=== PATIENT | female | born 1965 | race Asian ===

== ENCOUNTER 2021-05-08 15:47 | Outpatient (REF) | payer OTHER, SELFPAY ==
--- NOTE | ~2021-05-08 | XR_ITS ---
EXAMINATION: XR CHEST CLINICAL INFORMATION: Cough COMPARISON: Previous chest x-ray September 2006 TECHNIQUE: 2 views of the chest were obtained. FINDINGS: The cardiac and mediastinal contours are stable. There are new increased markings and question bronchial wall thickening in the central right upper lobe. The lungs are otherwise clear. There is no pleural effusion or pneumothorax. Bony structures are unremarkable. XR/XR chest 2V IMPRESSION: New increased markings and bronchial wall thickening in the central right upper lobe compared to 2007 exam. Chest x-ray follow-up following treatment recommended.
== END 2021-05-08 15:48 | disposition home or self-care (01) ==
LOC: HO.XRAY 15:47
PROVIDERS: Visit Provider Internal Medicine
DX: U09.9 Post COVID-19 condition, unspecified (principal); R05.9 Cough, unspecified
CPT/HCPCS: 71046

== ENCOUNTER → 2021-06-01 13:49 | Outpatient (BNVA) | payer OTHER, SELFPAY | PROVIDERS: PCP Pediatrics; Visit Provider Internal Medicine ==

== ENCOUNTER 2021-07-31 11:43 | Outpatient (REF) | payer OTHER, SELFPAY ==
[2021-07-31 11:57] LABS: MANUAL DIFF FLAG NO
[2021-07-31 12:26] LABS: Basophils Percent Auto 0.4 % (0-2); Eosinophils Absolute Auto 0.2 X10*3/uL (0.0-0.4); Eosinophils Percent Auto 2.1 % (0-4); Hematocrit 41.3 % (37.0-47.0); Hemoglobin 13.3 g/dl (12.0-16.0); Imm Gran Abs Auto 0.01 X10*3/uL (0.00-0.03); Imm Gran Pct Auto 0.1 % (0.0-0.4); Lymphocytes Percent Auto 48.1 % (20-40); Mean Corpuscular HGB Conc 32.2 g/dl (31.0-35.0); Mean Corpuscular Hemoglobin 28.5 pg (27.0-33.0); Mean Corpuscular Volume 88.6 fL (80.0-98.0); Mean Platelet Volume 10.9 fL (9.4-12.3); Monocytes Absolute Auto 0.6 X10*3/uL (0.1-1.2); Monocytes Percent Auto 6.7 % (2-11); Neutrophils Absolute Auto 3.6 x10*3/uL (2.0-8.3); Neutrophils Percent Auto 42.6 % (45-73); Platelet Count 299 X10*3/uL (160-400); Red Blood Count 4.66 X10*6/uL (4.20-5.50); Red Cell Distribution Width 13.7 % (11.0-16.0); White Blood Count 8.4 X10*3/uL (4.8-10.8)
[2021-07-31 13:10] LABS: Alanine Aminotransferase 45 U/L (0-31); Albumin Level 4.4 g/dL (3.5-5.0); Alkaline Phosphatase 69 U/L (39-117); Anion Gap 13 (12-20); Aspartate Amino Transferase 29 U/L (5-31); Bilirubin Total 0.3 mg/dL (0.0-1.0); Blood Urea Nitrogen 12 mg/dL (9-16); Calcium 9.6 mg/dL (8.4-10.2); Carbon Dioxide 25 mmol/L (22-29); Chloride 105 mmol/L (96-108); Cholesterol 209 mg/dL; Estimated Glomerular Filt Rate > 60; Glucose Fasting 98 mg/dL (60-99); HDL Cholesterol 46 mg/dL; LDL Cholesterol Calculated 127 mg/dl; Potassium 4.6 mmol/L (3.3-5.1); Sodium 138 mmol/L (135-145); Total Protein 7.1 g/dL (6.5-8.0); Triglycerides 184 mg/dL
[2021-07-31 13:21] LABS: TSH reflex Free T4 2.03 uIU/mL (0.32-4.0)
== END 2021-07-31 11:44 | disposition home or self-care (01) ==
LOC: HO.LAB 11:43
PROVIDERS: PCP Nurse Practitioner Family; Visit Provider Nurse Practitioner Family
DX: I10 Essential (primary) hypertension (principal); R53.83 Other fatigue; E78.00 Pure hypercholesterolemia, unspecified; Z76.89 Persons encountering health services in other specified circumstances
CPT/HCPCS: 36415; 80053; 80061; 84443; 85025

== ENCOUNTER 2021-11-03 09:24 | Outpatient (REF) | payer OTHER, SELFPAY ==
[2021-11-03 09:46] LABS: Hematocrit 38.7 % (37.0-47.0); Hemoglobin 12.6 g/dl (12.0-16.0); Mean Corpuscular HGB Conc 32.6 g/dl (31.0-35.0); Mean Corpuscular Hemoglobin 28.7 pg (27.0-33.0); Mean Corpuscular Volume 88.2 fL (80.0-98.0); Mean Platelet Volume 10.6 fL (9.4-12.3); Platelet Count 264 X10*3/uL (160-400); Red Blood Count 4.39 X10*6/uL (4.20-5.50); Red Cell Distribution Width 13.2 % (11.0-16.0); White Blood Count 7.5 X10*3/uL (4.8-10.8)
[2021-11-03 10:11] LABS: Alanine Aminotransferase 35 U/L (0-31); Albumin Level 4.3 g/dL (3.5-5.0); Alkaline Phosphatase 65 U/L (39-117); Anion Gap 13 (12-20); Aspartate Amino Transferase 25 U/L (5-31); Bilirubin Total 0.2 mg/dL (0.0-1.0); Blood Urea Nitrogen 11 mg/dL (9-16); Calcium 8.9 mg/dL (8.4-10.2); Carbon Dioxide 25 mmol/L (22-29); Chloride 107 mmol/L (96-108); Cholesterol 246 mg/dL; Estimated Glomerular Filt Rate > 60; Glucose Fasting 98 mg/dL (60-99); HDL Cholesterol 59 mg/dL; LDL Cholesterol Calculated 154 mg/dl; Potassium 4.1 mmol/L (3.3-5.1); Sodium 141 mmol/L (135-145); Total Protein 6.9 g/dL (6.5-8.0); Triglycerides 166 mg/dL
[2021-11-03 10:36] LABS: Vitamin D 25-OH Total 29.5 ng/mL (>30)
[2021-11-03 10:48] LABS: Folate 19.4 ng/mL (> or = 4.0); Vitamin B12 439 pg/mL (200-900)
== END 2021-11-03 09:25 | disposition home or self-care (01) ==
LOC: HO.LAB 09:24
PROVIDERS: PCP Nurse Practitioner Family; Visit Provider Nurse Practitioner Family
DX: R53.83 Other fatigue (principal)
CPT/HCPCS: 36415; 80053; 80061; 82306; 82607; 82746; 85027

== ENCOUNTER 2022-02-08 10:02 | Outpatient (REF) | payer OTHER, SELFPAY ==
[2022-02-08 11:33] LABS: Alanine Aminotransferase 31 U/L (0-31); Albumin Level 4.4 g/dL (3.5-5.0); Alkaline Phosphatase 65 U/L (39-117); Anion Gap 16 (12-20); Aspartate Amino Transferase 26 U/L (5-31); Bilirubin Total 0.2 mg/dL (0.0-1.0); Blood Urea Nitrogen 10 mg/dL (9-16); Calcium 9.1 mg/dL (8.4-10.2); Carbon Dioxide 26 mmol/L (22-29); Chloride 105 mmol/L (96-108); Cholesterol 224 mg/dL; Estimated Glomerular Filt Rate > 60; Glucose Fasting 90 mg/dL (60-99); HDL Cholesterol 52 mg/dL; LDL Cholesterol Calculated 138 mg/dl; Potassium 4.6 mmol/L (3.3-5.1); Sodium 142 mmol/L (135-145); Total Protein 6.9 g/dL (6.5-8.0); Triglycerides 174 mg/dL
[2022-02-08 11:56] LABS: Vitamin D 25-OH Total 34.2 ng/mL (>30)
== END 2022-02-08 10:03 | disposition home or self-care (01) ==
LOC: HO.LAB 10:02
PROVIDERS: Visit Provider Nurse Practitioner Family
DX: R79.89 Other specified abnormal findings of blood chemistry (principal); E78.5 Hyperlipidemia, unspecified; R03.0 Elevated blood-pressure reading, without diagnosis of hypertension
CPT/HCPCS: 36415; 80053; 80061; 82306

== ENCOUNTER 2022-03-01 10:40 | Outpatient (REF) | payer OTHER, SELFPAY ==
--- NOTE | ~2022-03-01 | XR_ITS ---
EXAMINATION: XR ANKLE, RIGHT CLINICAL INFORMATION: Right ankle pain. COMPARISON: None TECHNIQUE: AP, lateral, and mortise views of the right ankle. XR/XR ankle RT 2V FINDINGS/IMPRESSION: Mild soft tissue swelling over the medial malleolus. Plantar calcaneal spur. No fracture identified. Alignment is anatomic. Tibiotalar joint appears maintained. Mild degenerative changes of the midfoot. No joint effusion.
== END 2022-03-01 10:41 | disposition home or self-care (01) ==
LOC: HO.XRAY 10:40
PROVIDERS: PCP Nurse Practitioner Family; Visit Provider Nurse Practitioner Family
DX: M25.571 Pain in right ankle and joints of right foot (principal)
CPT/HCPCS: 73600

== ENCOUNTER 2022-07-20 12:15 | Outpatient (REF) | payer OTHER, SELFPAY ==
--- NOTE | ~2022-07-20 | XR_ITS ---
EXAMINATION: XR SINUSES CLINICAL INFORMATION: Disorders of nose and nasal sinuses. COMPARISON: None available. TECHNIQUE: 3 views of the sinuses were obtained. FINDINGS: The paranasal sinuses are well-aerated and clear of air-fluid levels or mucosal thickening. No bony abnormality seen. The soft tissues are normal. XR/XR sinus <3V IMPRESSION: Unremarkable sinus examination.
[2022-07-20 14:35] LABS: Uric Acid 4.7 mg/dL (2.4-5.7)
== END 2022-07-20 12:16 | disposition home or self-care (01) ==
LOC: HO.LAB 12:15
PROVIDERS: PCP Nurse Practitioner Family; Visit Provider Nurse Practitioner Family
DX: J34.89 Other specified disorders of nose and nasal sinuses (principal); M25.571 Pain in right ankle and joints of right foot
CPT/HCPCS: 36415; 70210; 84550

== ENCOUNTER 2022-07-30 08:46 | Outpatient (REF) | payer OTHER, SELFPAY ==
--- NOTE | ~2022-07-30 | MM_ITS ---
EXAMINATION: MM SCREENING DIGITAL BREAST TOMOSYNTHESIS, BILATERAL CLINICAL INFORMATION: Screening. Asymptomatic. The lifetime risk of breast cancer based on the Tyrer-Cuzick Model is 4%. COMPARISON: Outside mammography: 04/04/2022, 10/05/2021, 04/04/2021, 03/30/2021 ([facility]); 03/15/2020 ([facility]). TECHNIQUE: Digital breast tomosynthesis is performed in both the craniocaudal and mediolateral oblique views along with computer-aided detection (CAD). Synthesized 2D images are generated from the tomosynthesis. FINDINGS: There are scattered areas of fibroglandular density (ACR BI-RADS breast composition Category b). There is fine fibronodular pattern similar to prior outside exams. There is no developing density, significant mass, or architectural abnormality. There are scattered bilateral punctate and rim calcifications again seen. The axilla and skin contours are unremarkable. No significant changes. MM/MM tomosynthesis screening BI IMPRESSION: No mammographic evidence of malignancy. ASSESSMENT: BI-RADS 2: Benign RECOMMENDATION: Routine annual mammography screening. This patient's information was entered into a reminder system with a target due date for their next mammogram.
== END 2022-07-30 08:47 | disposition home or self-care (01) ==
LOC: HO.MAMMO 08:46
PROVIDERS: PCP Nurse Practitioner Family; Visit Provider Advanced Practice Midwife
DX: Z12.31 Encounter for screening mammogram for malignant neoplasm of breast (principal)
CPT/HCPCS: 77063; 77067

== ENCOUNTER 2022-09-29 09:41 | Outpatient (REF) | payer OTHER, SELFPAY ==
--- NOTE | ~2022-09-29 | XR_ITS ---
EXAMINATION: XR LUMBOSACRAL SPINE WITH OBLIQUES CLINICAL INFORMATION: Low back pain COMPARISON: None available. TECHNIQUE: AP, both oblique, and lateral views of the lumbar spine. Lateral view of the lumbosacral junction. FINDINGS: Bone alignment is normal. No fracture or dislocation. Mild degenerative this disease at T12-L1 and L1-L2. Lower lumbar spine facet arthritis. No pars defect. XR/XR lumbar spine 4V min IMPRESSION: Mild degenerative changes.
[2022-09-29 10:35] LABS: Alanine Aminotransferase 35 U/L (0-31); Albumin Level 4.2 g/dL (3.5-5.0); Alkaline Phosphatase 64 U/L (39-117); Anion Gap 14 (12-20); Aspartate Amino Transferase 34 U/L (5-31); Bilirubin Total 0.4 mg/dL (0.0-1.0); Blood Urea Nitrogen 12 mg/dL (9-16); Calcium 9.3 mg/dL (8.4-10.2); Carbon Dioxide 25 mmol/L (22-29); Chloride 108 mmol/L (96-108); Estimated Glomerular Filt Rate > 60; Glucose Fasting 97 mg/dL (60-99); Potassium 4.9 mmol/L (3.3-5.1); Sodium 142 mmol/L (135-145)
[2022-09-29 10:53] LABS: Uric Acid 6.4 mg/dL (2.4-5.7)
[2022-09-29 11:01] LABS: Folate 18.7 ng/mL (> or = 4.0); TSH reflex Free T4 1.67 uIU/mL (0.32-4.0); Vitamin B12 449 pg/mL (200-900); Vitamin D 25-OH Total 40.3 ng/mL (>30)
== END 2022-09-29 09:42 | disposition home or self-care (01) ==
LOC: HO.XRAY 09:41
PROVIDERS: PCP Nurse Practitioner Family; Visit Provider Nurse Practitioner Family
DX: Z00.00 Encounter for general adult medical examination without abnormal findings (principal); M54.50 Low back pain, unspecified; E78.5 Hyperlipidemia, unspecified; E55.9 Vitamin D deficiency, unspecified; E66.9 Obesity, unspecified
CPT/HCPCS: 36415; 72110; 80053; 82306; 82607; 82746; 84443; 84550

== ENCOUNTER 2022-10-10 09:48 | Outpatient (REF) | payer OTHER, SELFPAY ==
[2022-10-10 11:59] LABS: Cholesterol 238 mg/dL; HDL Cholesterol 53 mg/dL; LDL Cholesterol Calculated 151 mg/dl; Triglycerides 171 mg/dL
== END 2022-10-10 09:49 | disposition home or self-care (01) ==
LOC: HO.LAB 09:48
PROVIDERS: PCP Nurse Practitioner Family; Visit Provider Nurse Practitioner Family
DX: E78.5 Hyperlipidemia, unspecified (principal)
CPT/HCPCS: 36415; 80061

== ENCOUNTER 2022-11-16 13:00 | Outpatient (RCR) | payer OTHER, SELFPAY ==
--- NOTE | 2022-10-24 15:25 | MHC.PT.EP ---
[facility] [place] Office [place] [facility] [place] Office [address] Aguilar Alanis [address] [phone] F: [phone] F: [phone] F: [phone] F: [phone] Physical Therapy Plan of Care Date of Evaluation: Date of Surgery: Diagnosis: LBP Assessment: 57 YO FEMALE REF TO PT W H/O PROGRESSIVE LEFT LBP - SHE DENIES RADIC SXS. SHE HAS LIMITED TRUNK AROM AND HIP FLEXIB CARTER, (+) SCOLIOSIS, DECR LUMBOPELVIC/ PROX LE STRENGTH, (+) TISSUE TENSION IN LEFT THORACOLUMB PS MM, AND PAIN IN LEFT L/S REGION. ON XRAY, 10/17/22, Mild degenerative disease at T12-L1 and L1-L2. Lower lumbar spine facet arthritis. No pars defect. FUNCTIONALLY, Pt HAS DECR JAK TO PROLONGED STANDING, WALKING, AND MORE PHYSICALLY CHALLENGING ADLs. Pt WOULD BENEFIT FROM PT TO ADDRESS THE ABOVE FINDINGS, DEV A HEP, AND PAIN MGMT/ SELF- SX MGMT TECHN. Frequency and Duration: The patient will be seen 2 x WK x 4 WKS Short Term Goals: *Pt INDEP SELF CORRECT POSTURE AND DEMON WFL SQUAT *INITIATE HEP TO ADDRESS HIP/ LUMBOPELVIC FLEXIBILITY *DECR LEFT LBP TO 2-3/10 Senior Care Goals: *Pt INDEP HEP AND SELF-SX MGMT TECHN *Pt INDEP W REG ADLs/ EXER ROUTINE REFLECTED WITH IMPROVED OSWESTRY SCORE (AT EVAL 50) *Pt DEMON PROPER BODY MECH W 3:3 SIMUL WORK TASKS Treatment Plan: Modalities to reduce pain, spasms and effusion. Manual therapy to restore motion and function. Therapeutic exercise to improve strength and flexibility. Neuromuscular re-education for posture and balance. Therapeutic activities to return to functional activities of daily living. Electronically signed by: NANCI LEOPT Please sign and return to therapist. Thank you for your referral.
--- NOTE | 2022-11-22 10:38 | MHC.PT.DC ---
[facility] [place] Office [place] Office [place] Office [address] Aguilar Alanis [address] [phone] F: [phone] F: [phone] F: [phone] F: [phone] Physical Therapy Discharge Report Diagnosis: LBP Date of Surgery: Date of Evaluation: 10/24/22 Date of Discharge: 11/22/22 Treatments to Date: 6 Cancellations to Date: 0 No Shows to Date: 0 Discharge Status: Achieved Goals Improved Function Independent with HEP Discharge Summary: THE Pt PROGRESSED WELL IN PT- SHE IS MOTIVATED AND DEMON MUCH IMPROVED BODY MECH AND SELF-POSTURAL CORRECTION. HER LBP HAS RESOLVED AND SHE HAS BEEN ABLE TO RESUME HER REG ADLs, WELL , INTEGRATE EXERCISE. SHE IS D/C THIS DATE WITH A PROGRESSIVE HEP. Electronically signed by: NANCI LEO,PT Please sign and return to therapist. Thank you for your referral.
== END 2022-11-22 10:38 | disposition home or self-care (01) ==
LOC: HO.PT 13:00
PROVIDERS: PCP Nurse Practitioner Family; Visit Provider Nurse Practitioner Family
DX: M54.50 Low back pain, unspecified (principal)
CPT/HCPCS: 97110; 97140; 97162; 97530

== ENCOUNTER 2022-11-30 14:29 | Outpatient (AMB) | payer OTHER, SELFPAY ==
[2022-11-30 14:35] VITALS: BP 132/70; PULSE 64; BMI 37.0
--- NOTE | 2022-11-30 14:35 | MHC.OFFVIS ---
Intake Vital Signs 11/30/22 14:35 Height 4 ft 11 in Weight 183 lb 6.793 oz BMI 37.0 BP 132/70 Blood Pressure Location Lt brachial Position Sitting Pulse 64 Intake Visit Reasons: Colonoscopy Screening Intake Note: Dian presents in office as anew.patient for a colonoscopy screening PT CC: pt reports having no concerns pt denies any other GI Issues Pbx Mechanic Required: No Accompanied by: Self / Same As Patient Allergies No Known Drug Allergies Allergy (Unknown, Verified 11/30/22 14:36) Unknown HPI Colonoscopy Screening HPI Details 57 year old? female here today for pre colonoscopy screening.? Patient was sent to us by her PCP.? This is her first colonoscopy screening.? Patient denies any gastrointestinal symptoms in the past or at present.? Denies any personal or family history of gastrointestinal disease, colon polyps, or cancer.? Denies history of difficulty with sedation or anesthesia in the past.? Negative for history of sleep apnea.? Denies any history of cardiac, renal, pulmonary, or hepatic disease.?? No history of infectious? diseases like hepatitis A, B, C, HIV or tuberculosis.? Patient is not on any anticoagulation therapy. Patient is nervous about going for colonoscopy and with like to get Cologuard testing in that. Patient is aware that if she is going to be positive the recommendation is to go ahead and do the colonoscopy. [facility] Medical History Acute right ankle pain Cluster headache Cough Encounter to establish care Migraine Post covid-19 condition, unspecified Sinus pain Umbilical hernia Surgical History H/O hernia repair Social History Household Members: Spouse and Children Housing: House Alcohol intake: never Patient Tobacco Use Status: Never used Tobacco e-Cigarette/Vaping Use: Never Used Second Hand Smoke Exposure: No service: No Current occupational status: unemployed Sexual orientation: Straight/Heterosexual Gender identity: Female Cognitive needs: No Hearing needs: Yes (?hearing loss) Vision needs: Yes (Pt wears glasses) Review of Systems Const Denies weight gain and Denies weight loss ENT Reports no additional complaints, Denies dysphagia and Denies odynophagia Card Reports no additional complaints Resp Reports no additional complaints GI Denies abdominal pain, Denies belching, Denies melena, Denies bloating, Denies change in bowel habits, Denies dysphagia, Denies excessive flatus, Denies dyspepsia, Denies heartburn, Denies diarrhea, Denies loose stools, Denies nausea, Denies odynophagia and Denies vomiting Reports no additional complaints Musc Reports no additional complaints Neuro Reports no additional complaints Psych Reports no additional complaints Endo Reports no additional complaints Physical Exam Vital Signs: Last Vital Signs Pulse 64 11/30/22 14:35 BP 132/70 11/30/22 14:35 BMI result Body Mass Index 37.0 Const General: healthy appearing, no acute distress and well developed Nutritional Appearance: obese Orientation/consciousness: patient oriented x3 HEENT Head: Yes normal to inspection, Yes normocephalic and Yes atraumatic Face and sinus: Yes normal facial exam Mouth: Normal oral and palatal mucosa present Throat: Yes posterior oropharynx normal, Yes tonsils normal and Yes uvula midline Eyes General: appearance normal, both eyes and all related structures Neck Neck: Yes normal visual inspection, Yes full ROM and Yes trachea midline Thyroid: Thyroid normal Resp Effort & Inspection: normal respiratory effort, able to speak in complete sentences, no tracheal deviation and symmetric chest movement Auscultation: clear to auscultation bilaterally Cardio Rate: regular rate Heart sounds: S1 normal heart sound present and S2 normal heart sound present GI Inspection: Yes normal to inspection, No distended and Yes obesity Palpation (GI): Soft to palpation, not firm, nontender and No hepatosplenomegaly present Auscultation: normal bowel sounds General: Yes no CVA tenderness Back/Spine/Pelvis Back: no CVA tenderness Skin General skin exam: elasticity normal, turgor normal and dry skin Neuro General: patient oriented x3 Psych Appearance: grossly normal Mental Status: mental status grossly normal Speech and movement: Normal speech and movement present Affect: normal affect Assessment & Plan Assessment & Plan (1) Screening for colon cancer: Code(s): Z12.11 - Encounter for screening for malignant neoplasm of colon Plan: Patient denies any GI, cardiac or respiratory symptoms.? Denies any issues with anesthesia in the past.? Denies any history of sleep apnea.? No history infectious diseases in the past or present.? Not on any anticoagulation therapy.? No family or personal history of colon cancer or polyps.? Patient denies melena, hematochezia, unintentional weight loss or ribbon like stools.? As mentioned above patient with like to have Cologuard testing. She is going to follow-up with our office in 6 months. Information about colonoscopy and what to expect before during and after the procedure discussed with patient regardless, just in case she will change her mind. Patient is aware that if Cologuard comes back positive she should go for colonoscopy. Patient is agreeable and verbalizes understanding. She was given the opportunity to ask questions and all questions answered. Thank you for allowing me to participate in her care Coding Level of Care Code New Pt Level 3 (45573) Diagnoses Screening for colon cancer Z12.11 Time Spent (min) 40 Comment 30 minutes spent with patient and additional 10 minutes spent reviewing her records
== END 2022-11-30 14:50 | disposition home or self-care (01) ==
PROVIDERS: PCP Nurse Practitioner Family; Visit Provider Nurse Practitioner Family
DX: Z01.818 Encounter for other preprocedural examination (principal); Z12.11 Encounter for screening for malignant neoplasm of colon
CPT/HCPCS: 99203

== ENCOUNTER → 2022-11-30 14:29 | Outpatient (BNVA) | payer OTHER, SELFPAY | PROVIDERS: PCP Nurse Practitioner Family; Visit Provider Nurse Practitioner Family ==

== ENCOUNTER 2023-01-25 10:17 | Outpatient (REF) | payer OTHER, SELFPAY ==
[2023-01-25 11:06] LABS: Hematocrit 41.4 % (37.0-47.0); Hemoglobin 12.9 g/dl (12.0-16.0); Mean Corpuscular HGB Conc 31.2 g/dl (31.0-35.0); Mean Corpuscular Hemoglobin 28.3 pg (27.0-33.0); Mean Corpuscular Volume 90.8 fL (80.0-98.0); Platelet Count 217 X10*3/uL (160-400); Red Blood Count 4.56 X10*6/uL (4.20-5.50); White Blood Count 8.1 X10*3/uL (4.8-10.8)
[2023-01-25 11:49] LABS: Cholesterol 103 mg/dL (<200); HDL Cholesterol 50 mg/dL (>40); LDL Cholesterol Calculated 31 mg/dL (<100); Triglycerides 110 mg/dL (<150)
== END 2023-01-25 10:18 | disposition home or self-care (01) ==
LOC: HO.LAB 10:17
PROVIDERS: PCP Nurse Practitioner Family; Visit Provider Nurse Practitioner Family
DX: E78.5 Hyperlipidemia, unspecified (principal)
CPT/HCPCS: 36415; 80061; 85027

== ENCOUNTER 2023-01-30 15:13 | Outpatient (AMB) | payer OTHER, SELFPAY ==
[2023-01-30 15:16] VITALS: BP 146/80; PULSE 88; O2SAT 98; BMI 36.6
--- NOTE | 2023-01-30 15:16 | MHC.PC.OV ---
Vital Signs 01/30/23 15:16 Height 4 ft 11 in Weight 181 lb BMI 36.6 BP 146/80 H Blood Pressure Location Lt brachial Position Sitting Pulse 88 Pulse Source Pulse Oximeter Temp Source Skin Pulse Oximetry (%) 98 Oxygen Delivery Method Room Air Intake Visit Reasons: 4 month f/u Vocational Adviser Required: No Allergies No Known Drug Allergies Allergy (Unknown, Verified 01/30/23 15:44) Unknown Medication List - Last Reconciled 01/30/23 by KIA Rucker cetirizine (Zyrtec) 10 mg PO DAILY PRN cholecalciferol (vitamin D3) (Vitamin D3) 25 mcg PO DAILY escitalopram oxalate 5 mg (1/2 x 10 mg) PO DAILY fluticasone propionate 50 mcg/actuation (Flonase Allergy Relief) 2 sprays intranasal DAILY ibuprofen 600 mg PO Q8H PRN rosuvastatin 20 mg PO DAILY sodium chloride 0.65% (Saline Nasal) 1 spray intranasal BID PRN tizanidine 2 mg PO Q8H PRN tretinoin 0.025% appl topical BEDTIME Tobacco use date assessed: 01/30/23 Dental Screening Dental Screen Date: 01/30/23 Did you have a dental visit in the last 12 months?: Yes Did you have a dental problem in the last 6 months where you did not have access to dental care?: No Was dental information given to patient?: Patient has dentist HPI 4 month f/u HPI Details Patient is a 57-year-old female who presents today for routine follow-up. Medical history significant for GERD, environmental and seasonal allergies, migraine with aura, hyperlipidemia, insomnia, low back pain - patient reports finishing physical therapy with no improvement in pain-she reports taking ibuprofen and muscle relaxer with very minimal improvement, hyperlipidemia, bilateral ankle pain-reports history of right ankle injection 06/2022 by Podiatry with no improvement in pain-will refer to pain management for an evaluation. In regards to depression, patient reports that she would like to go back on paroxetine instead of escitalopram-escitalopram makes her mad at times. Patient denies shortness of breath or chest pain. Recent blood work results reviewed with the patient. [facility] Medical History Sinus pain Acute right ankle pain Encounter to establish care Umbilical hernia Cluster headache Migraine Post covid-19 condition, unspecified Cough Surgical History H/O hernia repair Social History Household Members: Spouse and Children Housing: House Alcohol intake: never Patient Tobacco Use Status: Never used Tobacco e-Cigarette/Vaping Use: Never Used Second Hand Smoke Exposure: No service: No Current occupational status: unemployed Sexual orientation: Straight/Heterosexual Gender identity: Female Cognitive needs: No Hearing needs: Yes (?hearing loss) Vision needs: Yes (Pt wears glasses) Questionnaire PHQ-9 Over the last 2 weeks, how often have you been bothered by any of the following problems? 1. Little interest or pleasure in doing things: not at all 2. Feeling down, depressed, or hopeless: not at all 3. Trouble falling or staying asleep, or sleeping too much: not at all 4. Feeling tired or having little energy: not at all 5. Poor appetite or overeating: not at all 6. Feeling bad about yourself - or that you are a failure or have let yourself or your family down: not at all 7. Trouble concentrating on things, such as reading the newspaper or watching television: not at all 8. Moving or speaking so slowly that other people could have noticed. Or the opposite - being so fidgety or restless that you have been moving around a lot more than usual: not at all 9. Thoughts that you would be better off or of hurting yourself in some way: not at all Total score: 0 Depression Screening Interpretation: Negative Depression Screening Done: Yes 20505 - PHQ-9 Billing: Yes Source: Developed by Drs. Aung Mac, Penny Dias, Theo Bhakta and colleagues, with an educational benja from [employer]. Thrive Questionnaire Date Thrive assessed: 07/20/22 AUDIT C Alcohol Use Questionnaire (AUDIT-C) 1. How often do you have a drink containing alcohol?: Never Total Score: 0 Score Reviewed/Action Taken: No LINDA-7 AMB Questionnaire LINDA-7 Date LINDA - 7 assessed: 09/28/22 Feeling nervous, anxious, or on edge: 0 = Not at all Not being able to stop or control worryin = Not at all Worrying too much about different things: 0 = Not at all Trouble relaxin = Not at all Being so restless that it is hard to sit still: 0 = Not at all Becoming easily annoyed or irritable: 0 = Not at all Feeling afraid as if something awful might happen: 0 = Not at all Total LINDA-7 score (0-4 normal; 5-9 mild; 10-14 moderate; 15-21 severe): 0 Source: Developed by Drs. Aung Mac, Penny Dias, Theo Bhakta and colleagues, with an educational benja from [employer]. LINDA-7 Assessment Billing LINDA-7 Assessment Tool: LINDA-7 Assessment 51512 Review of Systems Const Denies body aches, Denies chills, Reports fatigue, Denies fever(s) and Denies headache(s) Eyes Denies change in vision ENT Denies dizziness, Denies otalgia, Denies headache(s), Denies nasal discharge, Denies sinus pain and Denies sore throat Card Denies chest pain, Denies edema, Denies lightheadedness and Denies dyspnea Resp Denies cough and Denies dyspnea GI Denies constipation, Denies diarrhea, Denies nausea and Denies vomiting Denies dysuria Musc Reports as per HPI, Reports back pain, Denies myalgias and Reports arthralgias Skin/Breast Denies rash Neuro Denies dizziness and Denies headache(s) Endo Reports fatigue Physical exam (Primary Care) Vital Signs: Last Vital Signs Pulse 88 01/30/23 15:16 BP 146/80 H 01/30/23 15:16 Pulse Ox 98 01/30/23 15:16 Oxygen Delivery Method Room Air 01/30/23 15:16 BMI result Body Mass Index 36.6 Tobacco/Smoking Status: Tobacco use Status Tobacco use date assessed 01/30/23 01/30/23 15:17 Patient Tobacco Use Status Never used Tobacco 01/30/23 15:17 e-Cigarette/Vaping Use Never Used 01/30/23 15:17 PHQ-9: PHQ-9 Score PHQ-9: Total score 0 01/30/23 16:00 Depression Screening Interpretation: Negative Thrive Assessment: Date of Thrive Assessment Date Thrive assessed 07/20/22 01/30/23 15:17 Const General: cooperative and no acute distress Orientation/consciousness: patient oriented x3 HENMT Head: Yes normocephalic and Yes atraumatic Face and sinus: Yes sinuses nontender Mouth: oropharynx normal and moist mucous membranes Throat: Yes posterior oropharynx normal Eyes General: appearance normal, both eyes and all related structures Pupils: Equal, round and reactive pupils present EOM: EOMs intact bilaterally Neck Neck: Yes normal visual inspection, Yes full ROM and Yes no lymphadenopathy Resp Effort & Inspection: normal respiratory effort and able to speak in complete sentences Auscultation: clear to auscultation bilaterally, no crackles, no rales, no rhonchi and no wheezes Cardio Rate: regular rate Rhythm: regular rhythm Heart sounds: S1 normal heart sound present, S2 normal heart sound present and no murmurs GI Auscultation: normal bowel sounds Back/Spine/Pelvis Thoracic/Lumbar Spine: thoraco-lumbar ROM normal, paraspinal muscle tenderness (Left lumbar aspect), No thoracic spinal tenderness and lumbar spinal tenderness Skin General skin exam: no rashes or lesions noted Neuro General: patient oriented x3 Cranial nerves: Yes Equal, round and reactive pupils present Gait exam (Neuro): Normal gait present Extrem Other: Bilateral ankle normal to inspection, bilateral ankle medial aspect tender to palpation, full range of motion General: Yes full ROM and No edema Office Procedures Flu Questionnaire Does the patient have a severe egg allergy?: No Does the patient have severe life threatening allergies?: No Does the patient have a fever or illness today?: No Has the patient ever had Guillain-Walker Syndrome?: No Has the patient ever had any past reaction to a flu shot?: No Immunizations flu vacc [id number] 6mos up(PF) 60 mcg(15 mcgx4)/0.5 mL IM syringe Performing Provider: KIA Rucker Performing Location: [facility] Administered by: GARY Villafana on 01/30/23 15:35 Dose Route Admin Location Dispensed Lot Number Expiration Date NDC Management Information Systems Director 0.5 mL IM Left Deltoid 0.5 mL [id number] 10/27/23 [id number] [employer] VIS Given Date VIS Provided VIS Publication Date 01/30/23 Single Vaccine 20 Eligibility Eligibility Date Funding Source Not [facility] Eligible 01/30/23 Private Assessment and Plan Assessment & Plan (1) Hyperlipidemia: Code(s): E78.5 - Hyperlipidemia, unspecified Plan: LDL 31 12/2022 Decrease rosuvastatin to 10 mg daily Low-cholesterol diet (2) Low back pain: Code(s): M54.50 - Low back pain, unspecified Plan: Patient has finished physical therapy with no improvement in pain Will refer to pain management for an evaluation and treatment Continue ibuprofen 600 mg every 8 hours p.r.n. and tizanidine t.i.d. p.r.n.-educated about drowsiness (3) Obesity (BMI 30-39.9): Code(s): E66.9 - Obesity, unspecified Plan: Healthy food choices and exercise as tolerated Patient is interested in weight management referral (4) Depression: Code(s): F32.A - Depression, unspecified Qualifiers: Depression Type: other depression Qualified Code(s): F32.89 - Other specified depressive episodes Plan: Stop escitalopram - making patient mad at times Start paroxetine 10 mg daily-educated about possible adverse reactions and when to notify provider (5) Left ankle pain: Code(s): M25.572 - Pain in left ankle and joints of left foot Plan: Will obtain x-ray (6) Bilateral ankle pain: Code(s): M25.571 - Pain in right ankle and joints of right foot; M25.572 - Pain in left ankle and joints of left foot Plan: Pain management referral for an evaluation and treatment, patient reports history of right ankle injection 06/2022 with no improvement in pain (7) Elevated BP without diagnosis of hypertension: Code(s): R03.0 - Elevated blood-pressure reading, without diagnosis of hypertension Plan: Goal BP equal or less than 140/90 Blood pressure today 146/80 Patient denies acute symptoms Patient was encouraged to monitor her blood pressures at home and notify office if blood pressures over 140/90 consistently Reinforced low-sodium diet and weight loss Orders: Orders XR ankle LT min 3V Today M25.572 - Pain in left ankle and joints of left foot Influenza [id number] Immunization Today Z23 - Encounter for immunization Lipid Panel 4 Months E78.5 - Hyperlipidemia, unspecified Comprehensive [place]. Panel Fast 4 Months E78.5 - Hyperlipidemia, unspecified Referrals Medical Weight Management Referral E66.9 - Obesity, unspecified Pain Management Referral M25.571 - Pain in right ankle and joints of right foot, M25.572 - Pain in left ankle and joints of left foot, M54.50 - Low back pain, unspecified Medications: New rosuvastatin 10 mg PO DAILY 90 tabs 0RF E78.5 - Hyperlipidemia, unspecified paroxetine HCl 10 mg PO DAILY 30 tabs 2RF F32.A - Depression, unspecified Refilled tizanidine 2 mg PO Q8H PRN 14 tabs 0RF muscle spasticity M25.571 - Pain in right ankle and joints of right foot ibuprofen 600 mg PO Q8H PRN 15 tabs 0RF pain M54.50 - Low back pain, unspecified Discontinued escitalopram oxalate Discontinued Reason: Doctor's Order 5 mg (1/2 x 10 mg) PO DAILY 30 tabs 3RF cholecalciferol (vitamin D3) (Vitamin D3) Discontinued Reason: Patient no longer taking 25 mcg PO DAILY 90 caps 0RF rosuvastatin Discontinued Reason: Doctor's Order 20 mg PO DAILY 90 tabs 1RF E78.5 - Hyperlipidemia, unspecified Coding Level of Care Code Est Pt Level 4 (12477) Diagnoses Hyperlipidemia E78.5 Low back pain M54.50 Obesity (BMI 30-39.9) E66.9 Other depression F32.89 Depression Type: other depression Left ankle pain M25.572 Bilateral ankle pain M25.571; M25.572 Elevated BP without diagnosis of hypertension R03.0 Additional Codes LINDA-7 Assessment Billing - LINDA-7 Assessment Tool: LINDA-7 Assessment 77084 ([id number])
== END 2023-01-30 16:06 | disposition home or self-care (01) ==
PROVIDERS: PCP Nurse Practitioner Family; Visit Provider Nurse Practitioner Family
DX: E78.5 Hyperlipidemia, unspecified (principal); M54.50 Low back pain, unspecified; E66.9 Obesity, unspecified; Z23 Encounter for immunization; Z68.36 Body mass index [BMI] 36.0-36.9, adult; F32.89 Other specified depressive episodes; M25.572 Pain in left ankle and joints of left foot; M25.571 Pain in right ankle and joints of right foot; R03.0 Elevated blood-pressure reading, without diagnosis of hypertension
CPT/HCPCS: 90471; 90686; 99214

== ENCOUNTER 2023-01-31 10:24 | Outpatient (REF) | payer OTHER, SELFPAY | END 2023-01-31 10:25 | disposition home or self-care (01) | LOC: HO.XRAY 10:24 | PROVIDERS: PCP Nurse Practitioner Family; Visit Provider Nurse Practitioner Family | DX: M25.572 Pain in left ankle and joints of left foot (principal); E78.5 Hyperlipidemia, unspecified | CPT/HCPCS: 36415; 73610; 80053; 80061 ==

== ENCOUNTER 2023-02-12 14:12 | Outpatient (AMB) | payer OTHER, SELFPAY ==
--- NOTE | 2023-02-12 14:13 | MHC.OFFVIS ---
Intake Vital Signs 02/12/23 14:16 Height 4 ft 11 in Weight 180 lb BMI 36.4 BP 174/68 H Blood Pressure Location Lt brachial Position Sitting Pulse 77 Pulse Source Pulse Oximeter Pulse Oximetry (%) 98 Oxygen Delivery Method Room Air Intake Visit Reasons: Right ankle pain Intake Note: Pain today 12/06 Device Engineer Required: No Accompanied by: Spouse Allergies No Known Drug Allergies Allergy (Unknown, Verified 02/12/23 14:17) Unknown HPI Right ankle pain HPI Details Patient is a very pleasant 57 years old female presents today for initial evaluation of right ankle pain. She also has chronic left ankle and is scheduled to follow up with her Employment Attorney, Dr. Brownlee on 02/27/23. She is interested to discuss interventional treatments for right ankle pain today. Patient is accompanied by her . Denies any trauma, injury or falls. Pain is localized to right medial ankle with notable swelling in lateral and medial areas of ankle with mild bony deformation in the medial aspect of ankle. No skin color discolorations and no temperature changes bilaterally. She has mild weakness with ankle dorsiflexion and plantarflexion due to pain but no foot drop. Patient reports swelling and pain increases with prolonged standing or walking. Reports pain with heel walking. 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 Pain is partially relieved with sitting and elevation. She has several cortisone injections into her medial right ankle by Dr. Brownlee without benefit. Gentle stretching exercises at home usually increase her pain. Patient also reports chronic axial low back pain without radiation of pain to lower extremities. Denies any fever, bladder or bowel dysfunction or saddle anesthesia. Location Chronic medial bilateral ankle pain, right ankle pain is worse than left Duration Chronic pain for 1 year Characteristics of symptom or complaint Stabbing, shooting, aching, numbness, tingling, pins and needles Aggravating or associated factors Walking, standing, weight bearing, cold weather Relieving factors Sitting, resting, elevation, heat therapy, Tylenol Treatment Cortisone injections by Podiatry, Dr. Brownlee- no pain relief [facility] Medical History Sinus pain Acute right ankle pain Encounter to establish care Umbilical hernia Cluster headache Migraine Post covid-19 condition, unspecified Cough Surgical History H/O hernia repair Social History Household Members: Spouse and Children Housing: House Alcohol intake: never Patient Tobacco Use Status: Never used Tobacco e-Cigarette/Vaping Use: Never Used Second Hand Smoke Exposure: No service: No Current occupational status: unemployed Sexual orientation: Straight/Heterosexual Gender identity: Female Cognitive needs: No Hearing needs: Yes (?hearing loss) Vision needs: Yes (Pt wears glasses) Review of Systems Const All systems reviewed & are unremarkable except as noted in HPI and below Physical Exam Vital Signs: Last Vital Signs Pulse 77 02/12/23 14:16 BP 174/68 H 02/12/23 14:16 Pulse Ox 98 02/12/23 14:16 Oxygen Delivery Method Room Air 02/12/23 14:16 BMI result Body Mass Index 36.4 General: Appears afebrile. Alert and oriented. Mood and affect appropriate. Follows and participates in conversation appropriately. Respiratory effort is unlabored. No cough. Able to transition from sit to stand unassisted. Ambulates with bilaterally normal heel strike and toe off Reports pain with right heel walking. Pronation noted bilaterally with walking. No leg discrepancy noted. Cardio Peripheral pulses: radial pulses present, posterior tibial pulses present and dorsalis pedis present Back/Spine/Pelvis Cervical Spine: cervical ROM normal and No Cervical spine tenderness Thoracic/Lumbar Spine: thoracic and lumbar spine normal to inspection, No Thoracic/lumbar spine scar(s), Lasegue's sign negative, straight leg raise negative bilaterally, pain with thoraco-lumbar ROM, No thoracic spinal tenderness and No lumbar spinal tenderness Extrem General: Yes capillary refill normal, Yes no calf tenderness and No cyanosis Right lower extremity: ankle Details: tenderness Location: of the medial malleolus, swelling Details: laterally and medially and abnormal ROM Details: pain with active ROM Details: with plantar flexion and with dorsiflexion; no unusual warmth and no crepitus and foot Details: normal capillary refill and tenderness Location: of the medial foot and of the mid foot Left lower extremity: ankle Details: normal to inspection, tenderness Location: of the medial malleolus and normal ROM Results Reviewed Results Reviewed: XR LUMBOSACRAL SPINE WITH OBLIQUES 09/29/22 CLINICAL INFORMATION: Low back pain FINDINGS: Bone alignment is normal. No fracture or dislocation. Mild degenerative this disease at T12-L1 and L1-L2. Lower lumbar spine facet arthritis. No pars defect. IMPRESSION: Mild degenerative changes. XR ANKLE, LEFT 01/30/23 CLINICAL INFORMATION: Pain COMPARISON: None available. TECHNIQUE: AP, lateral, and mortise views of the left ankle. FINDINGS: No acute visible fracture or dislocation. Ankle mortise is symmetric. Punctate ossific densities along the inferior margin the medial malleolus may reflect arthritic changes versus sequela of remote trauma. Plantar calcaneal heel spur. Spurring the dorsal midfoot. Joint spaces and alignment are otherwise maintained. Mild soft tissue prominence about the ankle greatest at the medial aspect. IMPRESSION: 1. No acute visible fracture or dislocation. 2. Punctate ossific densities along the inferior margin the medial malleolus may reflect arthritic changes versus sequela of remote trauma. 3. Mild soft tissue prominence about the ankle greatest at the medial aspect. 4. Plantar calcaneal heel spur. XR/XR ankle RT 2V 03/01/22 FINDINGS/IMPRESSION: Mild soft tissue swelling over the medial malleolus. Plantar calcaneal spur. No fracture identified. Alignment is anatomic. Tibiotalar joint appears maintained. Mild degenerative changes of the midfoot. No joint effusion. Assessment & Plan Assessment & Plan (1) Bilateral ankle pain: Code(s): M25.571 - Pain in right ankle and joints of right foot; M25.572 - Pain in left ankle and joints of left foot (2) Spondylosis of lumbar region without myelopathy or radiculopathy: Code(s): M47.816 - Spondylosis without myelopathy or radiculopathy, lumbar region (3) Calcaneal spur of both feet: Code(s): M77.31 - Calcaneal spur, right foot; M77.32 - Calcaneal spur, left foot Plan Patient will follow up with Dr. Brownlee on 02/27/23 with recent left ankle xray findings and follow up for bilateral ankle pain, right worse than left. She would like to hold off on interventional treatments until she sees Dr. Brownlee. Tentatively will plan Right Sciatic Nerve Block with local and US guidance for potential Sprint PNS trial. Informational pamphlet provided today. Expectations, risks and benefits were reviewed. Patient will notify our office when she decised to proceed with injection. All questions were answered and the patient is in agreement of plan. Follow-up as needed. Medications: New diclofenac sodium 3% 1 appl topical BID 30 days PRN 100 grams 1RF pain M25.572 - Pain in left ankle and joints of left foot Discontinued ibuprofen Discontinued Reason: Doctor's Order 600 mg PO Q8H PRN 15 tabs 0RF pain M54.50 - Low back pain, unspecified Coding Level of Care Code New Pt Level 4 (38437) Diagnoses Bilateral ankle pain M25.571; M25.572 Spondylosis of lumbar region without myelopathy or radiculopathy M47.816 Calcaneal spur of both feet M77.31; M77.32
[2023-02-12 14:16] VITALS: BP 174/68; PULSE 77; O2SAT 98; BMI 36.4
== END 2023-02-12 14:55 | disposition home or self-care (01) ==
PROVIDERS: PCP Nurse Practitioner Family; Visit Provider Nurse Practitioner Family
DX: M25.571 Pain in right ankle and joints of right foot (principal); M25.572 Pain in left ankle and joints of left foot; M47.816 Spondylosis without myelopathy or radiculopathy, lumbar region; M77.31 Calcaneal spur, right foot; M77.32 Calcaneal spur, left foot
CPT/HCPCS: 99204

== ENCOUNTER → 2023-02-12 14:12 | Outpatient (BNVA) | payer OTHER, SELFPAY | PROVIDERS: PCP Nurse Practitioner Family; Visit Provider Nurse Practitioner Family ==

== ENCOUNTER 2023-02-13 10:52 | Outpatient (REF) | payer OTHER, SELFPAY ==
[2023-02-13 12:54] LABS: HBS Num1 4.18 mIU/mL (0-7.99); Hepatitis A Antibody IgM 0.19 Index (0-0.79); Hepatitis B Core Antibody Nonreactive (Nonreactive); Hepatitis B Surface Antigen Negative (Negative); ~HepC Num1 0.03 S/CO (0.00-0.79); ~Hepatitis A Antibody IgM Nonreactive (Nonreactive); ~Hepatitis B Surface Antibody NONREACTIVE (Nonreactive); ~Hepatitis C Antibody Nonreactive (Nonreactive)
== END 2023-02-13 10:53 | disposition home or self-care (01) ==
LOC: HO.LAB 10:52
PROVIDERS: PCP Nurse Practitioner Family; Visit Provider Nurse Practitioner Family
DX: R79.89 Other specified abnormal findings of blood chemistry (principal)
CPT/HCPCS: 36415; 86704; 86706; 86709; 86803; 87340

== ENCOUNTER 2023-03-06 09:21 | Outpatient (REF) | payer OTHER, SELFPAY ==
--- NOTE | ~2023-03-06 | US_ITS ---
EXAMINATION: US ABDOMEN LIMITED CLINICAL INFORMATION: Other specified abnormal findings of blood chemistry. COMPARISON: None available. TECHNIQUE: Real-time imaging of the right upper quadrant abdominal viscera. FINDINGS: PANCREAS: Mostly obscured. LIVER: The liver is normal in size. The liver contour is normal. There is diffuse increased liver parenchymal echogenicity, consistent with hepatic steatosis. No focal hepatic lesion. There is no intrahepatic biliary duct dilatation seen. GALLBLADDER: The gallbladder is physiologically distended. Multiple mobile gallstones are present. No evidence of pericholecystic fluid. Negative sonographic Baumann sign. COMMON BILE DUCT: Normal in caliber measuring 0.3 cm in diameter. RIGHT KIDNEY: No hydronephrosis. No renal calculi or focal parenchymal lesions. The kidney measures 9.8 cm in maximum dimension. FREE FLUID: None. US/US abdomen limited IMPRESSION: Hepatic steatosis. Cholelithiasis.
== END 2023-03-06 09:22 | disposition home or self-care (01) ==
LOC: HO.US 09:21
PROVIDERS: PCP Nurse Practitioner Family; Visit Provider Nurse Practitioner Family
DX: R79.89 Other specified abnormal findings of blood chemistry (principal)
CPT/HCPCS: 76705

== ENCOUNTER 2023-03-07 12:35 | Outpatient (AMB) | payer OTHER, SELFPAY ==
--- NOTE | 2023-03-07 12:56 | A.OFFVIS_ITS ---
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 Tries to eat healthy and stays active with exercise. Currently sexually active. Denies vaginal itching and irritation. STD screening offered; she declines. Denies family hx of breast, colon and ovarian cancer. Last mammogram; normal. UTD on colonoscopy. [facility] Medical History Sinus pain Acute right ankle pain Encounter to establish care Umbilical hernia Cluster headache Migraine Post covid-19 condition, unspecified Cough Surgical History H/O hernia repair Social History Household Members: Spouse and Children Housing: House Alcohol intake: never Patient Tobacco Use Status: Never used Tobacco e-Cigarette/Vaping Use: Never Used Second Hand Smoke Exposure: No service: No Current occupational status: unemployed Sexual orientation: Straight/Heterosexual Gender identity: Female Cognitive needs: No Hearing needs: Yes (?hearing loss) Vision needs: Yes (Pt wears glasses) Female Reproductive History Menstrual Total pregnancies: 5 Full term: 2 Number of Living Children: 2 Ab spontaneous: 3 Date of last pap smear: 05/05/18 (neg per Nepa) Date of Mammogram: 07/30/22 (Birad 2) Review of Systems Const All systems reviewed & are unremarkable except as noted in HPI and below Reports as per HPI Eyes Reports no additional complaints ENT Reports no additional complaints Card Reports no additional complaints Resp Reports no additional complaints GI Reports as per HPI and Reports no additional complaints Reports as per HPI Musc Reports no additional complaints Skin/Breast Reports as per HPI Neuro Reports no additional complaints Psych Reports no additional complaints Endo Reports no additional complaints [place]/Lymph Reports no additional complaints Aller/Immun Reports no additional complaints Physical Exam Vital Signs: Last Vital Signs BP 110/70 03/07/23 12:57 BMI result Body Mass Index 37.2 Const General: cooperative, healthy appearing, no acute distress, well developed and alert Orientation/consciousness: patient oriented x3 HEENT Head: Yes normal to inspection Eyes General: appearance normal, both eyes and all related structures Neck Neck: Yes normal visual inspection Thyroid: Thyroid normal Chest Other: large pendulous Chest palpation & inspection: normal inspection of the chest and other (no puckering, dimpling, peau de orange, retraction, discharge, masses) Breast/axilla inspection: normal inspection of the breasts Breast/axilla palpation: normal palpation of the breasts Resp Effort & Inspection: normal respiratory effort GI Inspection: Yes obesity Palpation (GI): Soft to palpation Rectal Exam - Female: deferred General: Yes bladder normal to palpation External Female Exam: normal external appearance and normal appearance of the urethra Speculum Exam - Vagina: normal appearance of the vagina, normal palpation and normal vaginal discharge Speculum Exam - Cervix: normal appearance of the cervix and normal palpation Bimanual exam- vagina & uterus: normal bimanual exam, normal palpation, uterine size normal, bladder normal to palpation, normal palpation and non-tender Bimanual Exam- Adnexa, other: no masses Skin General skin exam: no rashes or lesions noted Rashes: no rashes Neuro General: patient oriented x3 Cognition (Neuro): normal cognition Extrem General: Yes normal to inspection Psych Attitude: cooperative Thought process: Normal thought process present Assessment & Plan Assessment & Plan (1) Encounter for gynecological examination: Code(s): Z01.419 - Encounter for gynecological examination (general) (routine) without abnormal findings Plan: Discussed: Current recommendations for pap smears per ASCCP guidelines. Breast awareness and periodic self breast exams. Encouraged yearly mammograms. Maintaining a healthy lifestyle including a well balanced diet including Calcium and Vitamin D and routine exercise. Contact office with any PMB. Encouraged patient to sign up for patient portal if not already enrolled. All of her questions and concerns were addressed to the best of my ability. 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 Coding Level of Care Code Est Pt Prev Care 40-64y(01415) Diagnoses Encounter for gynecological examination Z01.419
[2023-03-07 12:57] VITALS: BP 110/70; BMI 37.2
== END 2023-03-07 13:35 | disposition home or self-care (01) ==
PROVIDERS: Visit Provider Advanced Practice Midwife
DX: Z01.419 Encounter for gynecological examination (general) (routine) without abnormal findings (principal)
CPT/HCPCS: 99396

== ENCOUNTER → 2023-03-07 12:35 | Outpatient (BNVA) | payer OTHER, SELFPAY | PROVIDERS: Visit Provider Advanced Practice Midwife ==

== ENCOUNTER 2023-04-30 16:09 | Outpatient (AMB) | payer OTHER, SELFPAY ==
--- NOTE | 2023-04-30 16:12 | MHC.OFFVIS ---
Intake Vital Signs 04/30/23 16:14 Height 4 ft 11 in Weight 185 lb 3.013 oz BMI 37.4 BP 140/63 H Blood Pressure Location Lt brachial Position Sitting Pulse 82 Intake Visit Reasons: 6 month fu Intake Note: Dian presents in the office as a 6 month follow up. CC: Allergies No Known Drug Allergies Allergy (Unknown, Verified 04/30/23 16:14) Unknown HPI 6 month fu HPI Details LAST VISIT Screening for colon cancer Patient denies any GI, cardiac or respiratory symptoms.? Denies any issues with anesthesia in the past.? Denies any history of sleep apnea.? No history infectious diseases in the past or present.? Not on any anticoagulation therapy.? No family or personal history of colon cancer or polyps.? Patient denies melena, hematochezia, unintentional weight loss or ribbon like stools.? As mentioned above patient with like to have Cologuard testing. She is going to follow-up with our office in 6 months. Information about colonoscopy and what to expect before during and after the procedure discussed with patient regardless, just in case she will change her mind. Patient is aware that if Cologuard comes back positive she should go for colonoscopy. Patient is agreeable and verbalizes understanding. She was given the opportunity to ask questions and all questions answered. TODAY'S VISIT Patient is here today for follow-up. Patient was sent for Cologuard and that was negative. Patient continues to decline colonoscopy at this time. Patient denies any abdominal pain or discomfort. Denies any melena, hematochezia, unintentional weight loss or ribbon like stools. Patient denies any dyspepsia, dysphagia or odynophagia. Patient reports that she has been feeling well. Reports to have good appetite [facility] Medical History Sinus pain Acute right ankle pain Encounter to establish care Umbilical hernia Cluster headache Migraine Post covid-19 condition, unspecified Cough Surgical History Hx of colonoscopy H/O hernia repair Social History Household Members: Spouse and Children Housing: House Alcohol intake: never Patient Tobacco Use Status: Never used Tobacco e-Cigarette/Vaping Use: Never Used Second Hand Smoke Exposure: No service: No Current occupational status: unemployed Sexual orientation: Straight/Heterosexual Gender identity: Female Cognitive needs: No Hearing needs: Yes (?hearing loss) Vision needs: Yes (Pt wears glasses) Review of Systems Const Denies weight gain and Denies weight loss ENT Reports no additional complaints, Denies dysphagia and Denies odynophagia Card Reports no additional complaints Resp Reports no additional complaints GI Denies abdominal pain, Denies belching, Denies melena, Denies bloating, Denies change in bowel habits, Denies dysphagia, Denies excessive flatus, Denies dyspepsia, Denies heartburn, Denies diarrhea, Denies loose stools, Denies nausea, Denies odynophagia and Denies vomiting Musc Reports no additional complaints Neuro Reports no additional complaints Psych Reports no additional complaints Endo Reports no additional complaints Physical Exam Vital Signs: Last Vital Signs Pulse 82 04/30/23 16:14 BP 140/63 H 04/30/23 16:14 BMI result Body Mass Index 37.4 Const General: healthy appearing, no acute distress and well developed Nutritional Appearance: well nourished Orientation/consciousness: patient oriented x3 Resp Effort & Inspection: normal respiratory effort, able to speak in complete sentences, no tracheal deviation and symmetric chest movement Auscultation: clear to auscultation bilaterally Cardio Rate: regular rate GI Inspection: Yes normal to inspection and No distended Palpation (GI): Soft to palpation, not firm, nontender and No hepatosplenomegaly present Auscultation: normal bowel sounds General: Yes no CVA tenderness Back/Spine/Pelvis Back: no CVA tenderness Skin General skin exam: elasticity normal, turgor normal and dry skin Neuro General: patient oriented x3 Psych Appearance: grossly normal Mental Status: mental status grossly normal Assessment & Plan Assessment & Plan (1) Screening for colon cancer: Code(s): Z12.11 - Encounter for screening for malignant neoplasm of colon Plan Patient continues to decline colonoscopy. Cologuard was negative. She will follow-up with PCP for Cologuard every 3 years. If positive patient will return to our office for colonoscopy. Patient also was encouraged to watch for change in her stool, melena, hematochezia, unintentional weight loss. Currently patient is doing well and denies any of the symptoms. Patient is agreeable to this plan and verbalizes understanding of instructions. She was given the opportunity to ask questions and all questions answered. Thank you for allowing me to participate in her care Coding Level of Care Code Est Pt Level 3 (88383) Diagnoses Screening for colon cancer Z12.11 Time Spent (min) 25 Comment 15 minutes spent with patient and additional 10 minutes spent reviewing her records
[2023-04-30 16:14] VITALS: BP 140/63; PULSE 82; BMI 37.4
== END 2023-04-30 16:39 | disposition home or self-care (01) ==
PROVIDERS: PCP Nurse Practitioner Family; Visit Provider Nurse Practitioner Family
DX: Z12.11 Encounter for screening for malignant neoplasm of colon (principal); Z01.818 Encounter for other preprocedural examination
CPT/HCPCS: 99213

== ENCOUNTER → 2023-04-30 16:09 | Outpatient (BNVA) | payer OTHER, SELFPAY | PROVIDERS: PCP Nurse Practitioner Family; Visit Provider Nurse Practitioner Family ==

== ENCOUNTER 2023-06-05 14:21 | Outpatient (AMB) | payer OTHER, SELFPAY ==
--- NOTE | 2023-06-05 14:23 | MHC.PC.OV ---
Vital Signs 06/05/23 14:26 Height 4 ft 11 in Weight 178 lb 8 oz BMI 36.0 BP 120/60 Blood Pressure Location Lt brachial Position Sitting Pulse 66 Pulse Source Pulse Oximeter Pulse Oximetry (%) 99 Oxygen Delivery Method Room Air Intake Visit Reasons: 4 month f/u Intake Note: Patient is here to follow up on Hyperlipidemia, Low back pain, GERD. Enrollment Management Manager Required: No Stock Shipper: Not Required per policy Accompanied by: Self / Same As Patient Allergies No Known Drug Allergies Allergy (Unknown, Verified 06/07/23 10:51) Unknown Medication List - Last Reconciled 06/07/23 by Kb Chu MD cetirizine (Zyrtec) 10 mg PO DAILY PRN diclofenac sodium 1% 4 grams topical QID fluticasone propionate 50 mcg/actuation (Flonase Allergy Relief) 2 sprays intranasal DAILY paroxetine HCl 10 mg PO DAILY rosuvastatin 10 mg PO DAILY sodium chloride 0.65% (Saline Nasal) 1 spray intranasal BID PRN tretinoin 0.025% appl topical BEDTIME Tobacco use date assessed: 06/05/23 Dental Screening Dental Screen Date: 06/05/23 Did you have a dental visit in the last 12 months?: Yes Did you have a dental problem in the last 6 months where you did not have access to dental care?: No Was dental information given to patient?: Patient has dentist HPI 4 month f/u HPI Details 57-year-old female wishes to discuss her medical problems. I will be assuming her care as her primary care provider has left the practice. Patient gives history of depression and low back pain. Compliant with medications and reports that the SSRIs are helping her. She is able to sleep well. Her appetite is good. Able to interact well with her family members. Able to do all activities of daily living. Low back pain symptoms are stable. She is able to function. [facility] [place] Medical History Sinus pain Acute right ankle pain Encounter to establish care Umbilical hernia Cluster headache Migraine Post covid-19 condition, unspecified Cough Surgical History Hx of colonoscopy H/O hernia repair Social History Household Members: Spouse and Children Housing: House Alcohol intake: never Patient Tobacco Use Status: Never used Tobacco e-Cigarette/Vaping Use: Never Used Second Hand Smoke Exposure: No service: No Current occupational status: unemployed Sexual orientation: Straight/Heterosexual Gender identity: Female Cognitive needs: No Hearing needs: Yes (?hearing loss) Vision needs: Yes (Pt wears glasses) Questionnaire PHQ-9 Over the last 2 weeks, how often have you been bothered by any of the following problems? 1. Little interest or pleasure in doing things: not at all 2. Feeling down, depressed, or hopeless: not at all 3. Trouble falling or staying asleep, or sleeping too much: not at all 4. Feeling tired or having little energy: not at all 5. Poor appetite or overeating: not at all 6. Feeling bad about yourself - or that you are a failure or have let yourself or your family down: not at all 7. Trouble concentrating on things, such as reading the newspaper or watching television: not at all 8. Moving or speaking so slowly that other people could have noticed. Or the opposite - being so fidgety or restless that you have been moving around a lot more than usual: not at all 9. Thoughts that you would be better off or of hurting yourself in some way: not at all Total score: 0 Depression Screening Interpretation: Negative Depression Screening Done: Yes Source: Developed by Drs. Aung Mac, Penny Dias, Theo Bhakta and colleagues, with an educational benja from [employer]. Thrive Questionnaire Date Thrive assessed: 06/05/23 I am a: Patient What is your living situation today?: I have a steady place to live Within the past 12 months, did the food you bought not last and you didn't have the money to get more?: Never true Within the past 12 months, did you worry whether your food would run out before you got money to buy more?: Never true Do you have trouble paying for medicines?: No Do you have trouble getting transportation to medical appointments?: No Do you have trouble paying your heating and electricity bill?: No Do you have trouble taking care of your child, family member or friend?: No Do you have trouble with day-to-day activities such as bathing, preparing meals, shopping, managing finances, etc.?: No Are you currently unemployed and looking for a job?: No Are you interested in more education?: No Currently or been in a relationship where the following occur: no concerns reported THRIVE Score: 0 AUDIT C Alcohol Use Questionnaire (AUDIT-C) 1. How often do you have a drink containing alcohol?: Never Total Score: 0 LINDA-7 AMB Questionnaire LINDA-7 Date LINDA - 7 assessed: 06/05/23 Feeling nervous, anxious, or on edge: 0 = Not at all Not being able to stop or control worryin = Not at all Worrying too much about different things: 0 = Not at all Trouble relaxin = Not at all Being so restless that it is hard to sit still: 0 = Not at all Becoming easily annoyed or irritable: 0 = Not at all Feeling afraid as if something awful might happen: 0 = Not at all Total LINDA-7 score (0-4 normal; 5-9 mild; 10-14 moderate; 15-21 severe): 0 Source: Developed by Drs. Aung Mac, Penny Dias, Theo Bhakta and colleagues, with an educational benja from [employer]. Physical exam (Primary Care) Vital Signs: Last Vital Signs Pulse 66 06/05/23 14:26 BP 120/60 06/05/23 14:26 Pulse Ox 99 06/05/23 14:26 Oxygen Delivery Method Room Air 06/05/23 14:26 BMI result Body Mass Index 36.0 Tobacco/Smoking Status: Tobacco use Status Tobacco use date assessed 06/05/23 06/05/23 14:31 Patient Tobacco Use Status Never used Tobacco 06/05/23 14:31 e-Cigarette/Vaping Use Never Used 06/05/23 14:31 PHQ-9: PHQ-9 Score PHQ-9: Total score 0 06/05/23 15:02 Depression Screening Interpretation: Negative Thrive Assessment: Date of Thrive Assessment Date Thrive assessed 06/05/23 06/05/23 14:31 Currently or been in a relationship where the following occur: no concerns reported Const General: cooperative and healthy appearing Nutritional Appearance: well nourished Orientation/consciousness: patient oriented x3 Limitations: no limitations HENMT Head: Yes normal to inspection Eyes General: appearance normal, both eyes and all related structures Neck Neck: Yes normal visual inspection Chest Chest palpation & inspection: normal palpation of entire chest wall Resp Effort & Inspection: normal respiratory effort Neuro General: patient oriented x3 Assessment and Plan Assessment & Plan (1) Osteoarthritis, hand: Code(s): M19.049 - Primary osteoarthritis, unspecified hand Plan: X-ray of the hand has been ordered. Will call with the results. (2) Hyperlipidemia: Code(s): E78.5 - Hyperlipidemia, unspecified Plan: Blood work has been ordered. Will call with the results. (3) GERD (gastroesophageal reflux disease): Code(s): K21.9 - Gastro-esophageal reflux disease without esophagitis Qualifiers: Esophagitis presence: without esophagitis Qualified Code(s): K21.9 - Gastro-esophageal reflux disease without esophagitis Plan: Continue current medications. (4) Hyperglycemia: Code(s): R73.9 - Hyperglycemia, unspecified Orders: Orders XR hand RT min 3V 06/05/23 M19.049 - Primary osteoarthritis, unspecified hand Lipid Panel 06/05/23 E78.5 - Hyperlipidemia, unspecified, K21.9 - Gastro-esophageal reflux disease without esophagitis Basic Metabolic Panel 06/05/23 E78.5 - Hyperlipidemia, unspecified, K21.9 - Gastro-esophageal reflux disease without esophagitis Complete Blood Count no Diff 06/05/23 E78.5 - Hyperlipidemia, unspecified, K21.9 - Gastro-esophageal reflux disease without esophagitis Hemoglobin A1c 06/05/23 R73.9 - Hyperglycemia, unspecified Thyroid Stimulating Hormone 06/05/23 E78.5 - Hyperlipidemia, unspecified, K21.9 - Gastro-esophageal reflux disease without esophagitis Liver Panel 06/05/23 E78.5 - Hyperlipidemia, unspecified, K21.9 - Gastro-esophageal reflux disease without esophagitis Erythrocyte Sedimentation Rate 06/05/23 E78.5 - Hyperlipidemia, unspecified, K21.9 - Gastro-esophageal reflux disease without esophagitis Coding Level of Care Code Est Pt Level 4 (94114) Diagnoses Osteoarthritis, hand M19.049 Hyperlipidemia E78.5 Gastroesophageal reflux disease without esophagitis K21.9 Esophagitis presence: without esophagitis Hyperglycemia R73.9
[2023-06-05 14:26] VITALS: BP 120/60; PULSE 66; O2SAT 99; BMI 36.0
== END 2023-06-05 14:59 | disposition home or self-care (01) ==
PROVIDERS: PCP Internal Medicine; Visit Provider Internal Medicine
DX: M19.049 Primary osteoarthritis, unspecified hand (principal); E78.5 Hyperlipidemia, unspecified; K21.9 Gastro-esophageal reflux disease without esophagitis; R73.9 Hyperglycemia, unspecified
CPT/HCPCS: 99214

== ENCOUNTER 2023-06-05 15:11 | Outpatient (REF) | payer OTHER, SELFPAY ==
--- NOTE | ~2023-06-05 | XR_ITS ---
EXAMINATION: XR HAND, RIGHT CLINICAL INFORMATION: Primary osteoarthritis COMPARISON: None available. TECHNIQUE: PA, lateral, and oblique views of the right hand. FINDINGS: The bones and soft tissues are normal. No fracture. Alignment is anatomic. Joint spaces are maintained. There is soft tissue calcification or sesamoid bone adjacent to the proximal metadiaphysis of fourth metacarpal bone, correlate with clinical history of pain. No erosions or soft tissue calcifications. XR/XR hand RT min 3V IMPRESSION: Prominent sesamoid bone versus soft tissue calcification.
[2023-06-05 15:33] LABS: Hematocrit 39.9 % (37.0-47.0); Hemoglobin 13.3 g/dl (12.0-16.0); Mean Corpuscular HGB Conc 33.3 g/dl (31.0-35.0); Mean Corpuscular Hemoglobin 29.1 pg (27.0-33.0); Mean Corpuscular Volume 87.3 fL (80.0-98.0); Mean Platelet Volume 10.7 fL (9.4-12.3); Platelet Count 248 X10*3/uL (160-400); Red Blood Count 4.57 X10*6/uL (4.20-5.50); Red Cell Distribution Width 13.1 % (11.0-16.0); White Blood Count 7.8 X10*3/uL (4.8-10.8)
[2023-06-05 16:42] LABS: Erythrocyte Sedimentation Rate 12 MM/HR (0-20)
[2023-06-05 16:51] LABS: Estimated Average Glucose 117 mg/dL; Hemoglobin A1c % 5.7 % (<6.0)
[2023-06-05 17:39] LABS: Alanine Aminotransferase 42 U/L (0-31); Albumin Level 4.3 g/dL (3.5-5.0); Alkaline Phosphatase 61 U/L (39-117); Anion Gap 14 (12-20); Aspartate Amino Transferase 32 U/L (5-31); Bilirubin Direct 0.1 mg/dL (0.0-0.5); Bilirubin Total 0.3 mg/dL (0.0-1.0); Blood Urea Nitrogen 8 mg/dL (9-16); Calcium 9.6 mg/dL (8.4-10.2); Carbon Dioxide 26 mmol/L (22-29); Chloride 106 mmol/L (96-108); Cholesterol 117 mg/dL (<200); Estimated Glomerular Filt Rate > 60; Glucose Random 93 mg/dL (60-115); HDL Cholesterol 53 mg/dL (>40); LDL Cholesterol Calculated 39 mg/dL (<100); Sodium 142 mmol/L (135-145); Total Protein 7.2 g/dL (6.5-8.0); Triglycerides 129 mg/dL (<150)
[2023-06-05 17:53] LABS: Thyroid Stimulating Hormone 1.88 uIU/mL (0.32-4.0)
== END 2023-06-05 15:12 | disposition home or self-care (01) ==
LOC: HO.LAB 15:11
PROVIDERS: PCP Internal Medicine; Visit Provider Internal Medicine
DX: K21.9 Gastro-esophageal reflux disease without esophagitis (principal); R73.9 Hyperglycemia, unspecified; E78.5 Hyperlipidemia, unspecified; M19.041 Primary osteoarthritis, right hand
CPT/HCPCS: 36415; 73130; 80048; 80061; 80076; 83036; 84443; 85027; 85652

== ENCOUNTER 2023-07-23 13:12 | Outpatient (AMB) | payer OTHER, SELFPAY ==
--- NOTE | 2023-07-23 13:16 | MHC.OFFWIV ---
Intake Vital Signs 07/23/23 13:17 BP 114/60 Blood Pressure Location Lt brachial Position Sitting Pulse 69 Pulse Source Pulse Oximeter Temp 97.5 F Temp Source Temporal Artery Scan Pulse Oximetry (%) 98 Oxygen Delivery Method Room Air Intake Visit Reasons: Sore throat Patient Tobacco Use Status: Never used Tobacco Allergies No Known Drug Allergies Allergy (Unknown, Verified 07/23/23 13:19) Unknown Medication List - Last Reconciled 07/23/23 by Nadege Pulido, EXHIBITS MANAGER- cetirizine (Zyrtec) 10 mg PO DAILY PRN diclofenac sodium 1% 4 grams topical QID fluticasone propionate 50 mcg/actuation (Flonase Allergy Relief) 2 sprays intranasal DAILY paroxetine HCl 10 mg PO DAILY rosuvastatin 10 mg PO DAILY sodium chloride 0.65% (Saline Nasal) 1 spray intranasal BID PRN tretinoin 0.025% appl topical BEDTIME HPI HPI Comments History of Present Illness Details Here today with complaints of a sore throat. Reports the sore throat started 2 weeks ago associated with nasal congestion and right ear pain. She does not have a cough. Denies fever. Exposed to with similar symptoms. Has been using Tylenol cold and flu with short-lived relief. [facility] Medical History Sinus pain Acute right ankle pain Encounter to establish care Umbilical hernia Cluster headache Migraine Post covid-19 condition, unspecified Cough Surgical History Hx of colonoscopy H/O hernia repair Social History Household Members: Spouse and Children Housing: House Alcohol intake: never Patient Tobacco Use Status: Never used Tobacco e-Cigarette/Vaping Use: Never Used Second Hand Smoke Exposure: No service: No Current occupational status: unemployed Sexual orientation: Straight/Heterosexual Gender identity: Female Cognitive needs: No Hearing needs: Yes (?hearing loss) Vision needs: Yes (Pt wears glasses) Review of Systems Const All systems reviewed & are unremarkable except as noted in HPI and below Physical Exam Const Other: Awake alert NAD Sclera and conjunctiva clear bilat TM intact and clear left, mild congestion on R Nares w/ mucoid d/c, turbinates WNL, frontal and max sinus tenderness bilat MMM, pharynx WNL RRR LS CTAB Assessment & Plan Assessment & Plan (1) Acute bacterial sinusitis: Code(s): J01.90 - Acute sinusitis, unspecified; B96.89 - Other specified bacterial agents as the cause of diseases classified elsewhere Plan: . Medications: New amoxicillin-pot clavulanate 875-125 mg 1 tab PO BID 14 tabs 0RF 7 days Coding Level of Care Code Est Pt Level 3 (78161) Diagnoses Acute bacterial sinusitis J01.90; B96.89
[2023-07-23 13:17] VITALS: BP 114/60; PULSE 69; TEMP 36.4; O2SAT 98
== END 2023-07-23 13:13 | disposition home or self-care (01) ==
LOC: HO.HMGWIW 13:12
PROVIDERS: PCP Internal Medicine
DX: J01.90 Acute sinusitis, unspecified (principal); B96.89 Other specified bacterial agents as the cause of diseases classified elsewhere
CPT/HCPCS: 99213

== ENCOUNTER 2023-08-14 14:35 | Outpatient (REF) | payer OTHER, SELFPAY ==
--- NOTE | ~2023-08-14 | MM_ITS ---
EXAMINATION: MM SCREENING DIGITAL BREAST TOMOSYNTHESIS, BILATERAL CLINICAL INFORMATION: Screening. Asymptomatic. COMPARISON: Mammography: This study is compared with prior exams dating back to 2019. TECHNIQUE: Digital breast tomosynthesis is performed in both the craniocaudal and mediolateral oblique views along with computer-aided detection (CAD). Synthesized 2D images are generated from the tomosynthesis. FINDINGS: There are scattered areas of fibroglandular density (ACR BI-RADS breast composition Category b). There are no significant masses, abnormal calcifications, or other abnormalities. Few, bilateral benign calcifications are present. MM/MM tomosynthesis screening BI IMPRESSION: No mammographic evidence of malignancy. ASSESSMENT: BI-RADS BI-RADS 2 - Benign Findings RECOMMENDATION: Routine annual mammography screening. 1 year F/U This examination should not preclude the clinical evaluation of a suspicious palpable abnormality. This patient's information was entered into a reminder system with a target due date for their next mammogram.
== END 2023-08-14 14:36 | disposition home or self-care (01) ==
LOC: HO.MAMMO 14:35
PROVIDERS: PCP Internal Medicine; Visit Provider Internal Medicine
DX: Z12.31 Encounter for screening mammogram for malignant neoplasm of breast (principal)
CPT/HCPCS: 77063; 77067

== ENCOUNTER → 2023-08-14 14:45 | Outpatient (BNV) | payer OTHER, SELFPAY | PROVIDERS: PCP Internal Medicine; Visit Provider Radiology Diagnostic Radiology | DX: Z12.31 Encounter for screening mammogram for malignant neoplasm of breast (principal) | CPT/HCPCS: 77063; 77067 ==

== ENCOUNTER 2023-11-25 12:19 | Outpatient (AMB) | payer OTHER, SELFPAY ==
--- NOTE | 2023-11-25 12:46 | MHC.OFFWIV ---
Intake Vital Signs 11/25/23 12:50 Height 5 ft 2.2 in Weight 181 lb 2 oz BMI 32.9 BP 130/66 Blood Pressure Location Lt brachial Position Sitting Respiration 18 Pulse 74 Pulse Source Palpation Temp 98.1 F Temp Source Oral Intake Visit Reasons: headache/pain around face/cheeks/eyes Intake Note: [id number] headache sinus pressure rt ear pain [ blocked ] Patient Tobacco Use Status: Never used Tobacco Is last menstrual period known: No Post menopausal: Yes Patient : No Allergies No Known Drug Allergies Allergy (Unknown, Verified 11/25/23 12:58) Unknown Medication List - Last Reconciled 11/25/23 by Nadege Pulido, PILLING MACHINE OPERATOR- cetirizine (Zyrtec) 10 mg PO DAILY PRN diclofenac sodium 1% 4 grams topical QID fluticasone propionate 50 mcg/actuation (Flonase Allergy Relief) 2 sprays intranasal DAILY paroxetine HCl 10 mg PO DAILY rosuvastatin 10 mg PO DAILY sodium chloride 0.65% (Saline Nasal) 1 spray intranasal BID PRN tretinoin 0.025% appl topical BEDTIME Do you need a note to return to daycare/school/sports/work: No HPI HPI Comments History of Present Illness Details Pleasant 58-year-old female here today with chief complaints of sinusitis. Reports that she developed URI symptoms about 10 days ago. Since the onset she has developed worsening sinus pain and pressure, right ear pain. Admits temperature of 100 degrees, fatigue, body aches. Using sjvo-cey-[id number] sinus decongestant medication with very mild relief. Awake alert NAD Sclera and conjunctiva clear bilat Nares patent, turbinates pale and edematous, + max sinus tenderness with palpation bilat TM intact with congestion bilat, worse on the right MMM, pharynx mild erythema with postnasal drip RRR LS CTAB PFSH Medical History Sinus pain Acute right ankle pain Encounter to establish care Umbilical hernia Cluster headache Migraine Post covid-19 condition, unspecified Cough Surgical History Hx of colonoscopy H/O hernia repair Social History Household Members: Spouse and Children Housing: House Alcohol intake: never Patient Tobacco Use Status: Never used Tobacco e-Cigarette/Vaping Use: Never Used Second Hand Smoke Exposure: No service: No Current occupational status: unemployed Sexual orientation: Straight/Heterosexual Gender identity: Female Cognitive needs: No Hearing needs: Yes (?hearing loss) Vision needs: Yes (Pt wears glasses) Physical Exam Vital Signs: Last Vital Signs Temp 98.1 F 11/25/23 12:50 Pulse 74 11/25/23 12:50 Resp 18 11/25/23 12:50 BP 130/66 11/25/23 12:50 BMI result Body Mass Index 32.9 Assessment & Plan Assessment & Plan (1) Acute bacterial sinusitis: Code(s): J01.90 - Acute sinusitis, unspecified; B96.89 - Other specified bacterial agents as the cause of diseases classified elsewhere Plan: . Plan . Medications: New amoxicillin-pot clavulanate 875-125 mg 1 tab PO BID 7 days 14 tabs 0RF Changed From fluticasone propionate 50 mcg/actuation (Flonase Allergy Relief) administer into each nostril 2 sprays intranasal DAILY 100 mL 0RF H92.01 - Otalgia, right ear To fluticasone propionate 50 mcg/actuation (Flonase Allergy Relief) administer into each nostril 1 spray intranasal BID 100 mL 0RF H92.01 - Otalgia, right ear Patient Instructions: What Is It? Sinuses are air-filled spaces behind the bones of the upper face: between the eyes and behind the forehead, nose and cheeks. The lining of the sinuses are made up of cells with tiny hairs on their surfaces called cilia. Other cells in the lining produce mucus. The mucus traps germs and pollutants and the cilia push the mucus out through narrow sinus openings into the nose. When the sinuses become inflamed or infected, the mucus thickens and clogs the openings to one or more sinuses. Fluid builds up inside the sinuses causing increased pressure. Also bacteria can become trapped, multiply and infect the lining. This is sinusitis. Prevention There are some measures you can take to decrease your risk of developing sinusitis. If you smoke cigarettes, you should quit. The smoke can irritate nasal passageways and increase the likelihood of infection. Nasal allergies can trigger sinus infections, too. By identifying the allergen (the substance causing the allergic reaction) and avoiding it, you can help prevent sinusitis. If you have congestion from a cold or allergies, the following may help to reduce the risk of developing sinusitis: Drink lots of water. This thins nasal secretions and keeps mucous membranes moist. Use steam to soothe nasal passages. Breathe deeply while standing in a hot shower, or inhale the vapor from a basin filled with hot water while holding a towel over your head. Avoid blowing your nose with great force, which can push bacteria into the sinuses. Some doctors advise periodic home nasal washings to clear secretions. This may help prevent, and also treat, sinus infections. Treatment Many sinus infections improve without treatment. However, several medications may speed recovery and reduce the chance that an infection will become chronic. Decongestants - Congestion often triggers sinus infections, and decongestants can open the sinuses and allow them to drain. Several are available: Pseudoephedrine (Sudafed) is available without prescription, alone or in combination with other medications in multi-symptom cold and sinus remedies. Pseudoephedrine can cause insomnia, racing pulse and jitteriness. Do not use if you have high blood pressure or a heart condition. Phenylephrine (such as Sudafed PE) is an alternative thjr-mtz-rvdwcau oral decongestant. If you take products containing oral phenylephrine, check with the pharmacist to be certain there is no interaction with other medications you take. Oxymetazoline (Afrin, Dristan and others) and phenylephrine (Henry-Synephrine and others) are found in nasal sprays. They are effective and may be less likely to cause the side effects seen with pseudoephedrine. However, using a nasal decongestant for more than three days can cause worse symptoms when you stop the medication. This is called the rebound effect. Antihistamines - These medications help to relieve the symptoms of nasal allergies that lead to inflammation and infections. However, some doctors advise against using antihistamines during a sinus infection because they can cause excessive drying and slow the drainage process. Myrn-ars-tqcpmja antihistamines include diphenhydramine (Benadryl and others), chlorpheniramine (Chlor-Trimeton and others) and loratadine (Claritin). Fexofenadine (Cass) and cetrizine (Zyrtec) are available by prescription. Nasal steroids - Anti-inflammatory sprays such as mometasone (Nasonex) and fluticasone (Flonase), both available by prescription, reduce swelling of nasal membranes. Like antihistamines, nasal steroids can be most useful for those who have nasal allergies. Nasal steroids tend to produce less drying than antihistamines. Unlike nasal decongestants, nasal steroids can be used for prolonged periods. Saline nasal sprays - These salt-water sprays are safe to use and can provide some relief by adding moisture to the nasal passages, thinning mucus secretions and helping to flush out any bacteria that may be present. Pain relievers - Acetaminophen (Tylenol), ibuprofen (Advil, Motrin and others) or naproxen (Aleve) can be taken sinus pain. Antibiotics - Your doctor may prescribe an antibiotic if he or she suspects that a bacterial infection is causing your sinusitis. If you start taking an antibiotic, complete the entire course so that the infection is completely killed off. Not all cases of sinusitis require antibiotic treatment: Talk with your doctor about whether an antibiotic is right for you. Keep in mind that antibiotics can cause side effects, such as allergic reactions, rash and diarrhea. In addition, overusing antibiotics eventually leads to the spread of bacteria that no longer can be killed by the most commonly prescribed antibiotics. When To Call A Professional Contact a doctor if you experience facial pain along with a headache and fever, cold symptoms that last longer than seven to 10 days, or persistent green discharge from the nose. If your symptoms don't improve within a week of beginning treatment, call your doctor. Call sooner if symptoms are getting worse. If you have repeated bouts of acute sinusitis, you may have allergies or another treatable cause of sinus congestion. Ask your doctor for advice. Coding Level of Care Code Est Pt Level 3 (82579) Diagnoses Acute bacterial sinusitis J01.90; B96.89
[2023-11-25 12:50] VITALS: BP 130/66; PULSE 74; RESP 18; TEMP 36.7; BMI 32.9
== END 2023-11-25 13:01 | disposition home or self-care (01) ==
PROVIDERS: PCP Internal Medicine; Visit Provider Nurse Practitioner Family
DX: J01.90 Acute sinusitis, unspecified (principal); B96.89 Other specified bacterial agents as the cause of diseases classified elsewhere
CPT/HCPCS: 99213

== ENCOUNTER 2024-01-01 15:09 | Outpatient (AMB) | payer OTHER, SELFPAY ==
--- NOTE | 2024-01-01 15:13 | A.OFFPC_ITS ---
Vital Signs 01/01/24 15:15 Height 4 ft 11 in Weight 180 lb 6 oz BMI 36.4 BP 120/80 Blood Pressure Location Lt brachial Position Sitting Pulse 75 Pulse Source Pulse Oximeter Pulse Oximetry (%) 97 Oxygen Delivery Method Room Air Intake Visit Reasons: 4 month f/u Intake Note: Patient is here to follow up on Depression, HLD, GERD. 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 Required: No Mold Preparer: Not Required per policy Accompanied by: Self / Same As Patient Allergies No Known Drug Allergies Allergy (Unknown, Verified 01/01/24 15:14) Unknown Tobacco use date assessed: 01/01/24 Dental Screening Dental Screen Date: 06/05/23 [facility] Medical History (Updated 01/01/24 @ 16:04 by Kb Chu MD) Class 2 severe obesity with body mass index (BMI) of 35 to 39.9 with serious comorbidity Sinus pain Acute right ankle pain Encounter to establish care Umbilical hernia Cluster headache Migraine Post covid-19 condition, unspecified Cough Surgical History Hx of colonoscopy H/O hernia repair Social History Household Members: Spouse and Children Housing: House Alcohol intake: never Patient Tobacco Use Status: Never used Tobacco e-Cigarette/Vaping Use: Never Used Second Hand Smoke Exposure: No service: No Current occupational status: unemployed Sexual orientation: Straight/Heterosexual Gender identity: Female Cognitive needs: No Hearing needs: Yes (?hearing loss) Vision needs: Yes (Pt wears glasses) Questionnaire Thrive Questionnaire Date Thrive assessed: 06/05/23 LINDA-7 AMB Questionnaire LINDA-7 Date LINDA - 7 assessed: 06/05/23 Source: Developed by Drs. Aung Mac, Penny Dias, Theo Bhakat and colleagues, with an educational benja from [employer] Physical exam (Primary Care) Vital Signs: Last Vital Signs Pulse 75 01/01/24 15:15 BP 120/80 01/01/24 15:15 Pulse Ox 97 01/01/24 15:15 Oxygen Delivery Method Room Air 01/01/24 15:15 BMI result Body Mass Index 36.4 Tobacco/Smoking Status: Tobacco use Status Tobacco use date assessed 01/01/24 01/01/24 15:21 Patient Tobacco Use Status Never used Tobacco 01/01/24 15:21 e-Cigarette/Vaping Use Never Used 01/01/24 15:21 Thrive Assessment: Date of Thrive Assessment Date Thrive assessed 06/05/23 01/01/24 15:21 Assessment and Plan Assessment & Plan (1) Class 2 severe obesity with body mass index (BMI) of 35 to 39.9 with serious comorbidity: Code(s): E66.01 - Morbid (severe) obesity due to excess calories (2) Spondylosis of lumbar region without myelopathy or radiculopathy: Code(s): M47.816 - Spondylosis without myelopathy or radiculopathy, lumbar region Medications: Refilled rosuvastatin 10 mg PO DAILY 90 tabs 0RF E78.5 - Hyperlipidemia, unspecified paroxetine HCl 10 mg PO DAILY 30 tabs 2RF F32.A - Depression, unspecified tizanidine 2 mg PO Q8H PRN 14 tabs 0RF muscle spasticity M25.571 - Pain in right ankle and joints of right foot ibuprofen 600 mg PO Q8H PRN 15 tabs 0RF pain M54.50 - Low back pain, unspecified Coding Level of Care Code Est Pt Level 4 (17296) Complex EM visit Add On G2211 Diagnoses Class 2 severe obesity with body mass index (BMI) of 35 to 39.9 with serious comorbidity E66.01 Spondylosis of lumbar region without myelopathy or radiculopathy M47.816
[2024-01-01 15:15] VITALS: BP 120/80; PULSE 75; O2SAT 97; BMI 36.4
== END 2024-01-01 15:59 | disposition home or self-care (01) ==
PROVIDERS: PCP Internal Medicine; Visit Provider Internal Medicine
DX: M47.816 Spondylosis without myelopathy or radiculopathy, lumbar region (principal); E66.01 Morbid (severe) obesity due to excess calories; Z68.36 Body mass index [BMI] 36.0-36.9, adult
CPT/HCPCS: 99214

== ENCOUNTER 2024-01-02 10:00 | Outpatient (REF) | payer OTHER, SELFPAY ==
[2024-01-02 11:43] LABS: Hematocrit 39.4 % (37.0-47.0); Hemoglobin 12.8 g/dl (12.0-16.0); Mean Corpuscular HGB Conc 32.5 g/dl (31.0-35.0); Mean Corpuscular Hemoglobin 28.7 pg (27.0-33.0); Mean Corpuscular Volume 88.3 fL (80.0-98.0); Mean Platelet Volume 11.4 fL (9.4-12.3); Platelet Count 228 X10*3/uL (160-400); Red Blood Count 4.46 X10*6/uL (4.20-5.50); Red Cell Distribution Width 13.6 % (11.0-16.0); White Blood Count 6.7 X10*3/uL (4.8-10.8)
[2024-01-02 12:10] LABS: Appearance Urine Clear; Color Urine Yellow; Glucose Urine UA Negative (Negative); Leukocyte Esterase Urine Trace (Negative); Nitrite Urine Negative (Negative); PH 6.5 (5.0-9.0); Specific Gravity - Urine 1.015 (1.005-1.025); UMIC TRIGGER UA YES; Urine Blood Negative (Negative); Urine Ketones Negative (Negative); Urine Protein Negative (Neg-Trace)
[2024-01-02 12:16] LABS: Bacteria Urine None Seen (None Seen); Hyaline Casts Urine 0-2 /LPF (0-2); RBC Urine 0-2 /HPF (0-2); Squamous Epithelial Cell Urine 0-2 /HPF (0-2); WBC Urine 0-5 /HPF (0-5)
[2024-01-02 12:29] LABS: Alanine Aminotransferase 41 U/L (0-31); Albumin Level 4.3 g/dL (3.5-5.0); Alkaline Phosphatase 63 U/L (39-117); Anion Gap 14 (12-20); Aspartate Amino Transferase 31 U/L (5-31); Bilirubin Direct 0.2 mg/dL (0.0-0.5); Bilirubin Total 0.4 mg/dL (0.0-1.0); Blood Urea Nitrogen 10 mg/dL (9-16); Calcium 9.3 mg/dL (8.4-10.2); Carbon Dioxide 23 mmol/L (22-29); Chloride 109 mmol/L (96-108); Estimated Glomerular Filt Rate > 60; Glucose Random 92 mg/dL (60-115); Sodium 142 mmol/L (135-145); Total Protein 6.9 g/dL (6.5-8.0)
[2024-01-02 12:34] LABS: Thyroid Stimulating Hormone 1.28 uIU/mL (0.32-4.0)
== END 2024-01-02 10:01 | disposition home or self-care (01) ==
LOC: HO.LAB 10:00
PROVIDERS: PCP Internal Medicine; Visit Provider Internal Medicine
DX: E66.01 Morbid (severe) obesity due to excess calories (principal); M47.816 Spondylosis without myelopathy or radiculopathy, lumbar region
CPT/HCPCS: 36415; 80048; 80076; 81001; 84443; 85027

== ENCOUNTER 2024-03-12 14:03 | Outpatient (AMB) | payer OTHER, SELFPAY ==
--- NOTE | 2024-03-12 14:05 | MHC.OFFVIS ---
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 She is doing well with no concerns. Currently sexually active. Denies any vaginal dryness or irritation. STI testing offered; she declines. Attempting to eat a healthy diet with calcium and vitamin D and stays active with exercise. Last pap smear; 2018. Last mammogram; 2023. Colonoscopy is UTD. Denies any family history of breast, ovarian or colon cancer. [facility] Medical History Class 2 severe obesity with body mass index (BMI) of 35 to 39.9 with serious comorbidity Sinus pain Acute right ankle pain Encounter to establish care Umbilical hernia Cluster headache Migraine Post covid-19 condition, unspecified Cough Surgical History Hx of colonoscopy H/O hernia repair Social History Household Members: Spouse and Children Housing: House Alcohol intake: never Patient Tobacco Use Status: Never used Tobacco e-Cigarette/Vaping Use: Never Used Second Hand Smoke Exposure: No Patient : No service: No Current occupational status: unemployed Sexual orientation: Straight/Heterosexual Gender identity: Female Cognitive needs: No Hearing needs: Yes (?hearing loss) Vision needs: Yes (Pt wears glasses) Female Reproductive History Menstrual Age of Menarche: 15 Date of last menstrual period: 03/10/14 control method: none Menopause type: natural Total pregnancies: 5 Full term: 2 Premature: 0 Number of Living Children: 2 Ab induced: 0 Ab spontaneous: 2 Ectopics: 0 Multiple births: 0 Date of last pap smear: 05/05/18 History of abnormal pap smear: No History of STI: No Date of Mammogram: 08/14/23 History of abnormal mammogram: No Review of Systems Const All systems reviewed & are unremarkable except as noted in HPI and below Reports as per HPI Eyes Reports no additional complaints ENT Reports no additional complaints Card Reports no additional complaints Resp Reports no additional complaints GI Reports as per HPI and Reports no additional complaints Reports as per HPI Musc Reports no additional complaints Skin/Breast Reports as per HPI Neuro Reports no additional complaints Psych Reports no additional complaints Endo Reports no additional complaints [place]/Lymph Reports no additional complaints Aller/Immun Reports no additional complaints Physical Exam Vital Signs: Last Vital Signs BP 126/74 03/12/24 14:13 BMI result Body Mass Index 37.0 Const General: cooperative, healthy appearing, no acute distress, well developed and alert Orientation/consciousness: patient oriented x3 HEENT Head: Yes normal to inspection Eyes General: appearance normal, both eyes and all related structures Neck Neck: Yes normal visual inspection Thyroid: Thyroid normal Chest Chest palpation & inspection: normal inspection of the chest and other (no puckering, dimpling, peau de orange, retraction, discharge, masses) Breast/axilla inspection: normal inspection of the breasts Breast/axilla palpation: normal palpation of the breasts Resp Effort & Inspection: normal respiratory effort GI Inspection: Yes obesity Palpation (GI): Soft to palpation Rectal Exam - Female: deferred General: Yes bladder normal to palpation External Female Exam: normal external appearance and normal appearance of the urethra Speculum Exam - Vagina: normal appearance of the vagina, normal palpation, normal vaginal discharge and vagina atrophic Speculum Exam - Cervix: normal appearance of the cervix, normal palpation and Other cervical findings present (Atrophic-bled very slightly with Pap) Bimanual exam- vagina & uterus: normal bimanual exam, normal palpation, uterine size normal, bladder normal to palpation, normal palpation and non-tender Bimanual Exam- Adnexa, other: no masses Skin General skin exam: no rashes or lesions noted Rashes: no rashes Neuro General: patient oriented x3 Cognition (Neuro): normal cognition Extrem General: Yes normal to inspection Psych Attitude: cooperative Thought process: Normal thought process present Assessment & Plan Assessment & Plan (1) Encounter for gynecological examination: Code(s): Z01.419 - Encounter for gynecological examination (general) (routine) without abnormal findings Category: Medical Plan Discussed: Current recommendations for pap smears per ASCCP guidelines. Breast awareness, periodic self breast exams and yearly mammogram. Maintain a healthy lifestyle, well balanced diet including Calcium 1,200 mg and Vitamin D 600 IU daily, and routine exercise. Contact the office with any postmenopausal bleeding. Patient verbalizes understanding and agrees to the plan of care. She was given opportunity to ask questions and all questions were answered to the best of my ability. RTO in 1 year for annual account engineer exam. This note is constructed using voice recognition software. While every effort has been made to ensure accuracy, cable cutter and swager errors may have been included. Coding Level of Care Code Est Pt Prev Care 40-64y(83849) Diagnoses Encounter for gynecological examination Z01.419
[2024-03-12 14:13] VITALS: BP 126/74; BMI 37.0
== END 2024-03-12 14:42 | disposition home or self-care (01) ==
PROVIDERS: PCP Nurse Practitioner Family; Visit Provider Advanced Practice Midwife
DX: Z01.419 Encounter for gynecological examination (general) (routine) without abnormal findings (principal)
CPT/HCPCS: 99396

== ENCOUNTER 2024-03-12 14:03 | Outpatient (REF) | payer OTHER, SELFPAY ==
[2024-03-13 10:28] LABS: HPV 16,18/45 See PAP report
== END 2024-03-12 14:04 | disposition home or self-care (01) ==
LOC: HO.LNP 14:03
PROVIDERS: PCP Nurse Practitioner Family; Visit Provider Advanced Practice Midwife
DX: Z01.419 Encounter for gynecological examination (general) (routine) without abnormal findings (principal)
CPT/HCPCS: 87624; 88175

== ENCOUNTER 2024-05-07 14:01 | Outpatient (AMB) | payer OTHER, SELFPAY ==
[2024-05-07 14:09] VITALS: BP 140/76; PULSE 77; O2SAT 98; BMI 37.0
--- NOTE | 2024-05-07 14:09 | A.OFFPC_ITS ---
Vital Signs 05/07/24 14:09 Height 4 ft 11 in Weight 183 lb 2 oz BMI 37.0 BP 140/76 H Blood Pressure Location Lt brachial Position Sitting Pulse 77 Pulse Source Pulse Oximeter Pulse Oximetry (%) 98 Oxygen Delivery Method Room Air Intake Visit Reasons: 4mth f/u Allergies No Known Drug Allergies Allergy (Unknown, Verified 05/07/24 14:31) Unknown Medication List - Last Reconciled 05/07/24 by Kb Chu MD cetirizine (Zyrtec) 10 mg PO DAILY PRN diclofenac sodium 1% 4 grams topical QID fluticasone propionate 50 mcg/actuation (Flonase Allergy Relief) 1 spray intranasal BID ibuprofen 600 mg PO Q8H PRN paroxetine HCl 10 mg PO DAILY rosuvastatin 10 mg PO DAILY sodium chloride 0.65% (Saline Nasal) 1 spray intranasal BID PRN tizanidine 2 mg PO Q8H PRN tretinoin 0.025% appl topical BEDTIME Tobacco use date assessed: 01/01/24 Dental Screening Dental Screen Date: 06/05/23 [facility] Medical History Class 2 severe obesity with body mass index (BMI) of 35 to 39.9 with serious comorbidity Sinus pain Acute right ankle pain Encounter to establish care Umbilical hernia Cluster headache Migraine Post covid-19 condition, unspecified Cough Surgical History Hx of colonoscopy H/O hernia repair Social History Household Members: Spouse and Children Housing: House Alcohol intake: never Patient Tobacco Use Status: Never used Tobacco e-Cigarette/Vaping Use: Never Used Second Hand Smoke Exposure: No service: No Current occupational status: unemployed Sexual orientation: Straight/Heterosexual Gender identity: Female Cognitive needs: No Hearing needs: Yes (?hearing loss) Vision needs: Yes (Pt wears glasses) Female Reproductive History Menstrual Age of Menarche: 15 Questionnaire PHQ-9 Over the last 2 weeks, how often have you been bothered by any of the following problems? 1. Little interest or pleasure in doing things: not at all 2. Feeling down, depressed, or hopeless: not at all 3. Trouble falling or staying asleep, or sleeping too much: not at all 4. Feeling tired or having little energy: not at all 5. Poor appetite or overeating: not at all 6. Feeling bad about yourself - or that you are a failure or have let yourself or your family down: not at all 7. Trouble concentrating on things, such as reading the newspaper or watching television: not at all 8. Moving or speaking so slowly that other people could have noticed. Or the opposite - being so fidgety or restless that you have been moving around a lot more than usual: not at all 9. Thoughts that you would be better off or of hurting yourself in some way: not at all Total score: 0 Depression Screening Interpretation: Negative Depression Screening Done: Yes 57652 - PHQ-9 Billing: Yes Source: Developed by Drs. Aung Mac, Penny Dias, Theo Bhakta and colleagues, with an educational benja from [employer]. Thrive Questionnaire Date Thrive assessed: 05/07/24 I am a: Patient What is your living situation today?: I have a steady place to live Within the past 12 months, did the food you bought not last and you didn't have the money to get more?: Never true Within the past 12 months, did you worry whether your food would run out before you got money to buy more?: Never true Do you have trouble paying for medicines?: No Do you have trouble getting transportation to medical appointments?: No Do you have trouble paying your heating and electricity bill?: No Do you have trouble taking care of your child, family member or friend?: No Do you have trouble with day-to-day activities such as bathing, preparing meals, shopping, managing finances, etc.?: No Are you currently unemployed and looking for a job?: No Are you interested in more education?: No Please select the resources that you would like help with: None Currently or been in a relationship where the following occur: No concerns reported THRIVE Score: 0 AUDIT C Alcohol Use Questionnaire (AUDIT-C) 1. How often do you have a drink containing alcohol?: Never 3. How often do you have six or more drinks on one occasion?: Never Total Score: 0 LINDA-7 AMB Questionnaire LINDA-7 Date LINDA - 7 assessed: 05/07/24 Feeling nervous, anxious, or on edge: 0 = Not at all Not being able to stop or control worryin = Not at all Worrying too much about different things: 0 = Not at all Trouble relaxin = Not at all Being so restless that it is hard to sit still: 0 = Not at all Becoming easily annoyed or irritable: 0 = Not at all Feeling afraid as if something awful might happen: 0 = Not at all Total LINDA-7 score (0-4 normal; 5-9 mild; 10-14 moderate; 15-21 severe): 0 Source: Developed by Drs. Aung Mac, Penny Dias, Theo Bhakta and colleagues, with an educational benja from [employer]. LINDA-7 Assessment Billing LINDA-7 Assessment Tool: LINDA-7 Assessment 71556 Physical exam (Primary Care) Vital Signs: Last Vital Signs Pulse 77 05/07/24 14:09 BP 140/76 H 05/07/24 14:09 Pulse Ox 98 05/07/24 14:09 Oxygen Delivery Method Room Air 05/07/24 14:09 BMI result Body Mass Index 37.0 Tobacco/Smoking Status: Tobacco use Status Tobacco use date assessed 01/01/24 05/07/24 14:09 Patient Tobacco Use Status Never used Tobacco 05/07/24 14:09 e-Cigarette/Vaping Use Never Used 05/07/24 14:09 PHQ-9: PHQ-9 Score PHQ-9: Total score 0 05/07/24 14:12 Depression Screening Interpretation: Negative Thrive Assessment: Date of Thrive Assessment Date Thrive assessed 05/07/24 05/07/24 14:12 Currently or been in a relationship where the following occur: No concerns reported Office Procedures Flu Questionnaire Does the patient have a severe egg allergy?: No Does the patient have severe life threatening allergies?: No Does the patient have a fever or illness today?: No Has the patient ever had Guillain-[place] Syndrome?: No Has the patient ever had any past reaction to a flu shot?: No Immunizations Fluarix Triv [id number] (PF) 45 mcg (15 mcg x 3)/0.5 mL IM syringe Performing Provider: Kb Chu MD Performing Location: [facility] Administered by: MADONNA Ravi on 05/07/24 14:16 Dose Route Admin Location Dispensed Lot Number Expiration Date NDC Senior Financial Reporting Accountant 0.5 mL IM Left Deltoid 0.5 mL [id number] 10/26/24 06004-658-34 [employer] VIS Given Date VIS Provided VIS Publication Date 05/07/24 Single Vaccine 20 Eligibility Eligibility Date Funding Source Not [facility] Eligible 05/07/24 Private Coding Level of Care Code Est Pt Level 4 (19382) Complex EM visit Add On G2211 Diagnoses Class 2 severe obesity with body mass index (BMI) of 35 to 39.9 with serious comorbidity E66.01 Allergic rhinitis J30.9 Additional Codes LINDA-7 Assessment Billing - LINDA-7 Assessment Tool: LINDA-7 Assessment 28796 ([id number]) PHQ-9 - 33257 - PHQ-9 Billing: Yes ([id number]) Assessment & Plan Assessment & Plan (1) Class 2 severe obesity with body mass index (BMI) of 35 to 39.9 with serious comorbidity: Code(s): E66.01 - Morbid (severe) obesity due to excess calories Category: Medical Plan: Counselling on the importance of diet and exercise done. (2) Allergic rhinitis: Code(s): J30.9 - Allergic rhinitis, unspecified Plan: flonase added to the regimen Plan History of Present Illness The patient is a 58-year-old female presenting with sinusitis. She reports ongoing issues with her sinuses, characterized by headaches associated with the sinus condition, recurring over the past several months. She experiences frequent nasal congestion potentially exacerbated by allergy, though specific allergens were not identified. Her sinus condition appears to be chronic with periodic exacerbations, likely influenced by allergic rhinitis. The patient has not mentioned any specific prior diagnoses or treatments related to sinusitis apart from the cessation of the multivitamin, which has had a partia lly mitigating effect on her symptoms. Patient is also requesting a refill on her cholesterol medications. Social History - Nutritional intake: The patient previously ingested a daily one-a-day mul tivitamin but discontinued due to sinus-related headaches. Review of Systems - Respiratory: Reports nasal congestion and sinus headaches possibly related to allergies. Physical Exam General: Cooperative and healthy appearing Nutritional Appearance: Well nourished Orientation/consciousness: Patient oriented x3 Limitations: No limitations Head: Normal to inspection General: Appearance normal, both eyes and all related structures Neck: Normal visual inspection Chest: Normal palpation of entire chest wall Respiratory: Normal respiratory effort Neurology: Patient oriented x3 Results Plan - Evaluate the need for nasal spray to alleviate nasal congestion symptoms. - Consider consult for surgical intervention to address digestive issues, emphasizing weight management through dietary adjustments. - Muscle relaxation medication may be considered for ongoing pain management as discussed. Patient was informed and verbally consented to the use of an ambient scribe for clinic note documentation during this visit. Discussion Notes During our discussion, I emphasized the role of sinusitis and allergic rhinitis in her current symptoms and considered the possible influence of the multivit tadeo. We reviewed nasal spray as an intervention for congestion and considered surgical options for gastrointestinal concerns, highlighting the potential for significant dietary changes post-procedure. The patient expressed apprehension about surgical approaches, preferring to explore conservative management options initially. Muscle relaxation treatment was discussed as a supportive measure for muscle pain. Follow-up will depend on symptom progression. Patient Instructions - Consider using a nasal spray as directed to help with congestion. - Monitor sinus symptoms and dietary intake for any changes or exacerbations. - Maintain awareness of symptoms and seek further consultation if sinusitis symptoms persist or worsen. - Take muscle relaxation medication as prescribed for pain management. Orders: Orders Influenza [id number] Immunization Today Z23 - Encounter for immunization
== END 2024-05-07 14:31 | disposition home or self-care (01) ==
PROVIDERS: PCP Internal Medicine; Visit Provider Internal Medicine
DX: J30.9 Allergic rhinitis, unspecified (principal); E66.01 Morbid (severe) obesity due to excess calories; Z68.37 Body mass index [BMI] 37.0-37.9, adult; Z23 Encounter for immunization

== ENCOUNTER → 2024-05-07 14:01 | Outpatient (BNVA) | payer OTHER, SELFPAY | PROVIDERS: PCP Internal Medicine; Visit Provider Internal Medicine | DX: J30.9 Allergic rhinitis, unspecified (principal); E66.01 Morbid (severe) obesity due to excess calories; Z68.37 Body mass index [BMI] 37.0-37.9, adult; Z23 Encounter for immunization | CPT/HCPCS: 90471; 90656; 96127 ==

== ENCOUNTER 2024-06-08 12:20 | Outpatient (REF) | payer OTHER, SELFPAY ==
[2024-06-08 15:30] LABS: Influenza A PCR POSITIVE (Negative); Influenza B PCR NEGATIVE (Negative); Resp Syncy Virus RNA Qual PCR NEGATIVE (Negative); SARS COV2 PCR INHOUSE NEGATIVE (Negative)
--- OUTSIDE RECORDS SUMMARY | 2024-06-08 15:59 | XMS_ITS | Encounter Summary ---
Author Organization [employer] [facility] Address [address] [place] [address] [address] [place] [address] Care Team Providers Care Hand Stamper Name Role Phone Unavailable Primary Care Provider Unavailabl e Encounter Details Date Type Department Care Team (Latest Contact Info) Description 03/31/2020 Abstract [facility] CONVERSIONS Dental, Provider, DDS Social History Tobacco Use Types Packs/Day Years Used Date Smoking Tobacco: Never Assessed Comments Unknown Sex and Gender Information Value Date Recorded Sex Assigned at Female 02/26/2022 10:34 AM EDT Legal Sex Female 10:34 AM EDT Gender Identity Female 02/26/2022 10:34 AM EDT Sexual Orientation Choose not to disclose 2021 10:34 AM EDT documented as of this encounter Plan of Treatment Upcoming Encounters Date Type Department Care Team (Late st Contact Info) Description 08/06/2024 3:00 PM EDT Office Visit [facility] [address] [place], [place] [phone] Corinne Pratt [address] [place], [place] [phone] documented as of this encounter Visit Diagnoses Not on filedocumented in this encounter
--- OUTSIDE RECORDS SUMMARY | 2024-06-08 15:59 | XMS_ITS | Encounter Summary ---
Author Organization [facility] Address [address] [place] [address] [address] [place] [address] Care Team Providers Care Cash Grain Grower Name Role Phone Unavailable Primary Care Provider Unavailabl e Encounter Details Date Type Department Care Team (Latest Contact Info) Description 01/30/2022 Abstract [facility] CONVERSIONS Dental, Provider, DDS Social History [...] Description 08/06/2024 3:00 PM EDT Office Visit [facility] [address] [place], [place] [phone] Corinne Pratt [address] [place], [place] [phone] documented as of this encounter Visit Diagnoses Not on filedocumented in this encounter
--- OUTSIDE RECORDS SUMMARY | 2024-06-08 15:59 | XMS_ITS | Encounter Summary ---
Author Organization [employer] [facility] Address [address] [place] [address] [address] [place] [address] Care Team Providers Care Wood Die Maker Name Role Phone Unavailable Primary Care Provider Unavailabl e Encounter Details Date Type Department Care Team (Latest Contact Info) Description 08/29/2018 Abstract [facility] CONVERSIONS Dental, Provider, DDS Social [...] Description 08/06/2024 3:00 PM EDT Office Visit [facility] DENTAL [address] [place], [place] [phone] Corinne Pratt [address] [place], [place] [phone] documented as of this encounter Visit Diagnoses Not on filedocumented in this encounter
--- OUTSIDE RECORDS SUMMARY | 2024-06-08 15:59 | XMS_ITS | Clinical Summary ---
Author Organization [employer] [facility] Address [address] [place] [address] [address] [place] [address] Care Team Providers Care Packaging Associate Name Role Phone Unavailable Primary Care Provider Unavailabl e Allergies Active Allergy Reactions Criticality Noted Date Comments Diphth-Acell Pertussis-Tetanus 02/25/2013 Unsure if true allergy versus localized reaction. Tolerated TD in past Medications Multiple Vitamin (Multi Vitamin) tablet Take by mouth. Active cholecalciferol (Vitamin D-3) 10 MCG (400 UNIT) capsule Active omeprazole (PriLOSEC) [address] capsule Take 1 capsule by mouth in the morning. 06/22/2021 Active Social History Tobacco Use Types Packs/Day Years Used Date Smoking Tobacco: Never Smokeless Tobacco: Never Tobacco Cessation:Counseling Given: Not Answered Comments Unknown Sex and Gender Information Value Date Recorded Sex Assigned at Female 02/26/2022 10:34 AM EDT Legal Sex Female 10:34 AM EDT Gender Identity Female 02/26/2022 10:34 AM EDT Sexual Orientation Choose not to disclose 2021 10:34 AM EDT Last Filed Vital Signs Vital Sign Reading Time Taken Comments Blood Pressure 143/79 02/04/2024 3:12 PM EDT Pulse 72 02/04/2024 3:12 PM EDT Temperature - - Respiratory Rate - - Oxygen Saturation - - Inhaled Oxygen Concentration - - Weight - - Height - - Body Mass Index - - Plan of Treatment Upcoming Encounters Date Type Department Care Team (Late st Contact Info) Description 08/06/2024 3:00 PM EDT Office Visit [facility] D[facility] [address] [place] [phone] Corinne Pratt [address] [place] [phone] Health Maintenance Due Date Last Done Comments CT Colonography 1966 Colonoscopy 1966 Colorectal Cancer Screening 1966 Depression Screening 1966 FIT DNA/Cologuard 1966 FIT 1966 FOBT 1966 HIV Screening 1966 Lipid Panel 1966 SDOH Screening 1966 Sigmoidoscopy 1966 Alcohol/Substance Use Screening 1978 Hepatitis C Screening 1984 Hepatitis B Vaccines (1 of 3 - 19+ 3-dose series) 1985 Pap Smear 08/14/1987 Cervical Cancer Screening 1996 HPV/Cotest 1996 Mammogram 2006 Pneumococcal Vaccine: 50+ Years (1 of 1 - PCV) 2016 Zoster Vaccines (1 of 2) 2016 Dental X-Ray: Full Mouth 03/14/2021 03/13/2018 DTaP/Tdap/Td Vaccines (2 - Td or Tdap) 02/18/2023 02/18/2013, 07/07/2004 COVID-19 Vaccine ( season) 2023 12/01/2020, 11/10/2020 Influenza Vaccine (#1) 2023 , 02/24/2021, 05/01/2018, Additional history exists Dental Oral Exam 08/05/2024 02/04/2024, , 01/30/2022, Additional history exists Dental Prophylaxis 08/05/2024 02/04/2024, 0 12/17/2022, 01/30/2022, Additional history exists Tobacco Screening 02/03/2025 02/04/2024 Dental X-Ray: Bitewings 02/04/2025 02/04/20 24, 01/28/2023, 01/30/2022, Additional history exists RSV Patients and Patients Aged 60 years or older (1 - 1-dose 75+ series) 2041 HIB Vaccines Aged Out No longer eligi ble based on patient's age to complete this topic HPV Vaccines Aged Out No longer eligi ble based on patient's age to complete this topic Hepatitis A Vaccines Aged Out No long er eligible based on patient's age to complete this topic IPV Vaccines Aged Out No longer eligi ble based on patient's age to complete this topic Meningococcal Vaccine Aged Out No latasha tessie eligible based on patient's age to complete this topic Pneumococcal Vaccine: Pediatrics (0 to 5 Years) and At-Risk Patients (6 to 49) Years) Aged Out No longer eligible based on patient's age to complete this topic RSV under 20 months Aged Out No longe r eligible based on patient's age to complete this topic Rotavirus Vaccines Aged Out No longer eligible based on patient's age to complete this topic Procedures Procedure Name Priority Date/Time Associated Diagnosis Comments PROPHYLAXIS - ADULT Routine 02/04/2024 3 :00 PM EDT BITEWINGS - 4 RADIOGRAPHIC IMAGES Routine 02/04/2024 3:00 PM EDT PERIODIC ORAL EVALUATION - ESTABLISHED PATIENT Routine 02/04/2024 3:00 PM EDT DIAGNOSTIC - DIAGNOSTIC IMAGING - INTRAORAL - COMPREHENSIVE SERIES OF RADIOGRAPHIC IMAGES Routine 03/13/2018 12:00 AM EST from Last 3 Months or Most Recently Relevant to Health Maintenance Insurance DENTAL - HSN PARTIAL (MEDICAID)
== END 2024-06-08 12:21 | disposition home or self-care (01) ==
LOC: HO.LNP 12:20
PROVIDERS: PCP Internal Medicine; Visit Provider Nurse Practitioner Family
DX: R09.89 Other specified symptoms and signs involving the circulatory and respiratory systems (principal); R68.89 Other general symptoms and signs; R05.3 Chronic cough; Z13.9 Encounter for screening, unspecified
CPT/HCPCS: 0241U; 87880

== ENCOUNTER → 2024-06-08 12:20 | Outpatient (AMB) | payer OTHER, SELFPAY ==
[2024-06-08 12:29] VITALS: BP 130/76; PULSE 79; TEMP 36.6; O2SAT 97; BMI 36.4
--- NOTE | 2024-06-08 12:29 | MHC.OFFWIV ---
Intake Vital Signs 06/08/24 12:29 Height 4 ft 11 in Weight 180 lb BMI 36.4 BP 130/76 Blood Pressure Location Rt brachial Position Sitting Pulse 79 Pulse Source Pulse Oximeter Temp 97.8 F Temp Source Oral Pulse Oximetry (%) 97 Intake Visit Reasons: est/congestion head an chest Patient Tobacco Use Status: Never used Tobacco Allergies No Known Drug Allergies Allergy (Unknown, Verified 06/08/24 12:52) Unknown Medication List - Last Reconciled 06/08/24 by JOSE LweisP- cetirizine (Zyrtec) 10 mg PO DAILY PRN diclofenac sodium 1% 4 grams topical QID fluticasone propionate 50 mcg/actuation (Flonase Allergy Relief) 1 spray intranasal DAILY ibuprofen 600 mg PO Q8H PRN paroxetine HCl 10 mg PO DAILY rosuvastatin 10 mg PO DAILY tizanidine 2 mg PO Q8H PRN tretinoin 0.025% appl topical BEDTIME Do you need a note to return to daycare/school/sports/work: No HPI HPI Comments History of Present Illness Details The patient is a 58-year-old female presenting with symptoms of a head cold. She reports experiencing fever for a couple of weeks, which has since resolved over the past two days. During the same timeframe, she developed a persistent cough and nasal congestion that interferes with her sleep. The patient mentions a sensation of fullness in the ears, which she describes as feeling dropped. Additionally, she has experienced a burning sensation in her nose and some discomfort in her throat. She has been managing the fever at home with Tylenol, which she reports provided some relief. The patient confirms having received a flu vaccine this season. S sick w similar sx. Physical Exam General: Awake, alert. No apparent distress Eyes: Sclera and conjunctiva clear bilaterally Nose: Nares clear drainage, turbinates within normal limits, no sinus tenderness with palpation bilaterally Ears: Tympanic membranes intact, mild congestion Throat: Moist mucosa membrane, pharynx within normal limits, uvula midline, no exudate Cardiovascular: Regular rate and rhythm Respiratory: Clear to auscultation bilaterally, dry cough w/o distress Results Rapid strep negative viral swab pending Discussion Notes During the patient visit, I discussed the likely viral origin of her symptoms, considering the current circulation of seasonal illnesses including influenza, COVID-19, RSV, and neurofibrosis. I explained the need for nasal and throat swabs to test for viral pathogens such as influenza, RSV, and strep throat ? common concerns given the overlap in symptoms. I outlined the nature of these tests, as one swab for multiple viruses and a separate one for strep. The patient agreed to the procedure, understanding it might feel slightly uncomfortable. We also discussed the precautionary measures to reduce symptom spread and the importance of hydration and rest to assist recovery. Follow-up discussions took place regarding the completion of swabs and subsequent evaluations. Patient Instructions - Continue taking Tylenol as needed for any recurring fever. - Stay well-hydrated and rest to help recovery. - Use decongestants and humidifiers to ease nasal congestion. - Monitor symptoms and return if they worsen or if fever returns. -will be called once viral swab is back Plan Considering the symptomatic presentation of nasal congestion, cough, and pharyngitis, attributed primarily to a viral upper respiratory infection, the management focus is supportive care. Diagnostic nasal and throat swabs have been performed to rule out underlying viral pathogens, including influenza and strep throat, though the current symptoms strongly suggest a viral etiology. The patient is advised to maintain symptomatic relief measures such as using Tylenol for any recurring fever and employing decongestants to alleviate nasal obstruction. Given the patient's vaccination status and symptom profile, her risk for influenza and complications is considered mitigated. Future care will be guided upon test results but will prioritize symptom management and monitoring for potential secondary infections. Communication regarding results will determine if additional therapeutic interventions are necessary. Patient was informed and verbally consented to the use of an ambient scribe for clinic note documentation during this visit. Total time spent caring for the patient today was 30 minutes. This includes time spent before the visit reviewing the chart, time spent during the visit, and time spent after the visit on documentation, reviewing laboratory results, diagnostic imaging, medications, performing a medically necessary evaluation, counseling on diagnoses, care coordination, ordering appropriate tests, ordering appropriate medications, review of tests performed by other providers, reporting test results with the patient, communication with other healthcare providers. [facility] Medical History Class 2 severe obesity with body mass index (BMI) of 35 to 39.9 with serious comorbidity Sinus pain Acute right ankle pain Encounter to establish care Umbilical hernia Cluster headache Migraine Post covid-19 condition, unspecified Cough Surgical History Hx of colonoscopy H/O hernia repair Social History Household Members: Spouse and Children Housing: House Alcohol intake: never Patient Tobacco Use Status: Never used Tobacco e-Cigarette/Vaping Use: Never Used Second Hand Smoke Exposure: No service: No Current occupational status: unemployed Sexual orientation: Straight/Heterosexual Gender identity: Female Cognitive needs: No Hearing needs: Yes (?hearing loss) Vision needs: Yes (Pt wears glasses) Female Reproductive History Menstrual Age of Menarche: 15 Physical Exam Vital Signs: Last Vital Signs Temp 97.8 F 06/08/24 12:29 Pulse 79 06/08/24 12:29 BP 130/76 06/08/24 12:29 Pulse Ox 97 06/08/24 12:29 BMI result Body Mass Index 36.4 Results AMB Rapid Strep AMB Rapid Strep Negative Last Edit by Morteza Burns CMA on 06/08/24 14:00 Results Reviewed Results Reviewed: Laboratory Last Values Strep Scn Rapid Clinic Negative 06/08/24 13:06 Assessment & Plan Assessment & Plan (1) Flu-like symptoms: Code(s): R68.89 - Other general symptoms and signs Plan . Orders: Orders SARS-CoV2/FLU/RSV Today R09.89 - Other specified symptoms and signs involving the circulatory and respiratory systems, R68.89 - Other general symptoms and signs AMB Rapid Strep Screen Today Z13.9 - Encounter for screening, unspecified Coding Level of Care Code Est Pt Level 4 (22654) Diagnoses Flu-like symptoms R68.89
== END ==
LOC: HO.HMCWIW 12:20
PROVIDERS: PCP Internal Medicine; Visit Provider Nurse Practitioner Family
DX: R68.89 Other general symptoms and signs (principal); Z13.9 Encounter for screening, unspecified

== ENCOUNTER 2024-07-30 11:19 | Outpatient (REF) | payer OTHER, SELFPAY ==
[2024-07-30 13:11] LABS: MANUAL DIFF FLAG NO
[2024-07-30 13:41] LABS: Basophils Percent Auto 0.5 % (0-2); Eosinophils Absolute Auto 0.1 X10*3/uL (0.0-0.4); Eosinophils Percent Auto 0.7 % (0-4); Hematocrit 38.6 % (37.0-47.0); Hemoglobin 12.7 g/dl (12.0-16.0); Imm Gran Abs Auto 0.02 X10*3/uL (0.00-0.03); Imm Gran Pct Auto 0.3 % (0.0-0.4); Lymphocytes Absolute Auto 3.9 X10*3/uL (1.2-4.9); Lymphocytes Percent Auto 52.7 % (20-40); Mean Corpuscular HGB Conc 32.9 g/dl (31.0-35.0); Mean Corpuscular Hemoglobin 29.1 pg (27.0-33.0); Mean Corpuscular Volume 88.3 fL (80.0-98.0); Mean Platelet Volume 10.7 fL (9.4-12.3); Monocytes Absolute Auto 0.4 X10*3/uL (0.1-1.2); Monocytes Percent Auto 5.8 % (2-11); Platelet Count 274 X10*3/uL (160-400); Red Blood Count 4.37 X10*6/uL (4.20-5.50); Red Cell Distribution Width 13.2 % (11.0-16.0); White Blood Count 7.4 X10*3/uL (4.8-10.8)
--- OUTSIDE RECORDS SUMMARY | 2024-07-30 13:55 | XMS_ITS | Encounter Summary ---
Author Organization [facility] Address [address] [place] [address] [address]t [place] [address] Care Team Providers Care Lime Slaker Name Role Phone Unavailable Primary Care Provider Unavailabl e Encounter Details Date Type Department Care Team (Latest Contact Info) Description 08/29/2018 Abstract [facility] CONVERSIONS Dental, Provider, DDS Social History [...] Description 08/06/2024 3:00 PM EDT Office Visit [facility] [address] [place], [place] [phone] Corinne Pratt [address] [place], [place] [phone] documented as of this encounter Visit Diagnoses Not on filedocumented in this encounter
--- OUTSIDE RECORDS SUMMARY | 2024-07-30 13:55 | XMS_ITS | Encounter Summary ---
Author Organization [employer] [facility] Address [address] [place] [address] 7t [place] [address] Care Team Providers Care Plant And Machinery Valuer Name Role Phone Unavailable Primary Care Provider Unavailabl e Encounter Details Date Type Department Care Team (Latest Contact Info) Description 03/31/2020 Abstract [facility] CONVERSIONS Dental, Provider, DDS Social History Tobacco [...] 08/06/2024 3:00 PM EDT Office Visit [facility] [address] [place], [place] [phone] Corinne Pratt [address] [place], [place] [phone] documented as of this encounter Visit Diagnoses Not on filedocumented in this encounter
--- OUTSIDE RECORDS SUMMARY | 2024-07-30 13:55 | XMS_ITS | Encounter Summary ---
Author Organization [employer] [facility] Address [address] [place] [address] 7t [place] [address] Care Team Providers Care Fire Protection Fabricator Name Role Phone Unavailable Primary Care Provider Unavailabl e Encounter Details Date Type Department Care Team (Latest Contact Info) Description 01/30/2022 Abstract [facility] CONVERSIONS Dental, Provider, DDS Social History Tobacco [...] Description 08/06/2024 3:00 PM EDT Office Visit [facility] [address] [place], [place] [phone] Corinne Pratt [address] [place], [place] [phone] documented as of this encounter Visit Diagnoses Not on filedocumented in this encounter
--- OUTSIDE RECORDS SUMMARY | 2024-07-30 13:55 | XMS_ITS | Clinical Summary ---
Author Organization [employer] [facility] Address [address] [place] [address] 7t [place] [address] Care Team Providers Care Relief Worker Name Role Phone Unavailable Primary Care Provider [...] EDT Office Visit [facility] [address] [place] [address] [phone] Corinne Pratt [address] [place] [phone] Health Maintenance Due Date Last Done Comments [...]
[2024-07-30 13:57] LABS: Estimated Average Glucose 123 mg/dL; Hemoglobin A1C 142.2531 umol/L; Hemoglobin A1c % 5.9 % (<6.0); Total Hemoglobin (HGBA1C) 3438.7951 umol/L
[2024-07-30 14:01] LABS: Alanine Aminotransferase 37 U/L (0-31); Albumin Level 4.3 g/dL (3.5-5.0); Alkaline Phosphatase 64 U/L (39-117); Anion Gap 9 (12-20); Aspartate Amino Transferase 31 U/L (5-31); Bilirubin Direct 0.2 mg/dL (0.0-0.5); Bilirubin Total 0.3 mg/dL (0.0-1.0); Blood Urea Nitrogen 10 mg/dL (9-16); C Reactive Protein 0.15 mg/dL (< or = 0.50); Calcium 9.3 mg/dL (8.4-10.2); Carbon Dioxide 26 mmol/L (22-29); Chloride 110 mmol/L (96-108); Estimated Glomerular Filt Rate > 60; Glucose Random 92 mg/dL (60-115); Magnesium 2.2 mg/dL (1.6-2.6); Potassium 4.4 mmol/L (3.3-5.1); Sodium 141 mmol/L (135-145)
[2024-07-30 14:18] LABS: TSH reflex Free T4 2.48 uIU/mL (0.32-4.0); Vitamin D 25-OH Total 33.6 ng/mL (>30)
[2024-07-30 14:24] LABS: Folate 11.8 ng/mL (> or = 4.0); Vitamin B12 293 pg/mL (200-900)
[2024-07-30 14:30] LABS: Erythrocyte Sedimentation Rate 7 MM/HR (0-20)
[2024-07-31 07:08] LABS: Prolactin 2.4 ng/mL
[2024-08-03 10:09] LABS: Zinc 60 mcg/dL (60-130)
[2024-08-03 23:19] LABS: Vitamin A 62 mcg/dL (38-98)
[2024-08-04 01:09] LABS: Testosterone, Total 11 ng/dL (2-45)
[2024-08-04 22:28] LABS: Estrogen 57 pg/mL
[2024-08-07 16:49] LABS: Vitamin B1 13 nmol/L (8-30)
[2024-08-12 16:54] LABS: Progesterone <0.1 ng/mL
== END 2024-07-30 11:20 | disposition home or self-care (01) ==
LOC: HO.LAB 11:19
PROVIDERS: PCP Internal Medicine; Visit Provider Physician Assistant Medical
DX: J32.9 Chronic sinusitis, unspecified (principal); L30.9 Dermatitis, unspecified; R53.83 Other fatigue; L65.9 Nonscarring hair loss, unspecified; Z00.00 Encounter for general adult medical examination without abnormal findings; Z13.1 Encounter for screening for diabetes mellitus
CPT/HCPCS: 36415; 80053; 82248; 82306; 82607; 82672; 82746; 83036; 83735; 84144; 84146; 84403; 84425; 84443; 84590; 84630; 85025; 85652; 86140; 96127

== ENCOUNTER 2024-07-30 11:19 | Outpatient (AMB) | payer OTHER, SELFPAY ==
[2024-07-30 11:44] VITALS: BP 130/72; PULSE 79; RESP 22; TEMP 36.4; O2SAT 98; BMI 37.6
--- NOTE | 2024-07-30 11:44 | A.OFFPC_ITS ---
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: No Accompanied by: Self / Same As Patient Allergies No Known Drug Allergies Allergy (Unknown, Verified 07/30/24 12:26) Unknown Medication List - Last Reconciled 07/30/24 by Kari Tomlinson PA-C cetirizine (Zyrtec) 10 mg PO DAILY PRN diclofenac sodium 1% 4 grams topical QID fluticasone propionate 50 mcg/actuation (Flonase Allergy Relief) 1 spray intranasal DAILY guaifenesin ER (Mucinex) 600 mg PO Q12H PRN 10 days ibuprofen 600 mg PO Q8H PRN loratadine 10 mg PO DAILY paroxetine HCl 10 mg PO DAILY rosuvastatin 10 mg PO DAILY tizanidine 2 mg PO Q8H PRN tretinoin 0.025% appl topical BEDTIME Tobacco use date assessed: 07/30/24 Dental Screening Dental Screen Date: 07/30/24 Did you have a dental visit in the last 12 months?: Yes Did you have a dental problem in the last 6 months where you did not have access to dental care?: No Was dental information given to patient?: Patient has dentist [facility] Medical History (Updated 07/30/24 @ 13:03 by Kari Tomlinson PA-C) Hair loss Eczema Sinusitis Class 2 severe obesity with body mass index (BMI) of 35 to 39.9 with serious comorbidity Sinus pain Acute right ankle pain Encounter to establish care Umbilical hernia Cluster headache Migraine Post covid-19 condition, unspecified Cough Surgical History Hx of colonoscopy H/O hernia repair Social History Household Members: Spouse and Children Housing: House Alcohol intake: never Patient Tobacco Use Status: Never used Tobacco e-Cigarette/Vaping Use: Never Used Second Hand Smoke Exposure: No service: No Current occupational status: unemployed Sexual orientation: Straight/Heterosexual Gender identity: Female Cognitive needs: No Hearing needs: Yes (?hearing loss) Vision needs: Yes (Pt wears glasses) Female Reproductive History Menstrual Age of Menarche: 15 Questionnaire PHQ-9 Over the last 2 weeks, how often have you been bothered by any of the following problems? 1. Little interest or pleasure in doing things: not at all 2. Feeling down, depressed, or hopeless: not at all 3. Trouble falling or staying asleep, or sleeping too much: not at all 4. Feeling tired or having little energy: not at all 5. Poor appetite or overeating: not at all 6. Feeling bad about yourself - or that you are a failure or have let yourself or your family down: not at all 7. Trouble concentrating on things, such as reading the newspaper or watching television: not at all 8. Moving or speaking so slowly that other people could have noticed. Or the opposite - being so fidgety or restless that you have been moving around a lot more than usual: not at all 9. Thoughts that you would be better off or of hurting yourself in some way: not at all Total score: 0 Depression Screening Interpretation: Negative Depression Screening Done: Yes 68508 - PHQ-9 Billing: Yes Source: Developed by Drs. Aung Mac, Penny Dias, Theo Bhakta and colleagues, with an educational benja from [employer]. Thrive Questionnaire Date Thrive assessed: 07/30/24 I am a: Patient What is your living situation today?: I have a steady place to live Within the past 12 months, did the food you bought not last and you didn't have the money to get more?: Never true Within the past 12 months, did you worry whether your food would run out before you got money to buy more?: Never true Do you have trouble paying for medicines?: No Do you have trouble getting transportation to medical appointments?: No Do you have trouble paying your heating and electricity bill?: No Do you have trouble taking care of your child, family member or friend?: No Do you have trouble with day-to-day activities such as bathing, preparing meals, shopping, managing finances, etc.?: No Are you currently unemployed and looking for a job?: No Are you interested in more education?: No Please select the resources that you would like help with: None Currently or been in a relationship where the following occur: No concerns reported THRIVE Score: 0 AUDIT C Alcohol Use Questionnaire (AUDIT-C) 1. How often do you have a drink containing alcohol?: Never 3. How often do you have six or more drinks on one occasion?: Never Total Score: 0 Score Reviewed/Action Taken: No LINDA-7 AMB Questionnaire LINDA-7 Date LINDA - 7 assessed: 07/30/24 Feeling nervous, anxious, or on edge: 0 = Not at all Not being able to stop or control worryin = Not at all Worrying too much about different things: 0 = Not at all Trouble relaxin = Not at all Being so restless that it is hard to sit still: 0 = Not at all Becoming easily annoyed or irritable: 0 = Not at all Feeling afraid as if something awful might happen: 0 = Not at all Total LINDA-7 score (0-4 normal; 5-9 mild; 10-14 moderate; 15-21 severe): 0 Source: Developed by Drs. Aung Mac, Penny Dias, Theo Bhakta and colleagues, with an educational benja from [employer]. LINDA-7 Assessment Billing LINDA-7 Assessment Tool: LINDA-7 Assessment 21360 Physical exam (Primary Care) Vital Signs: Last Vital Signs Temp 97.5 F 07/30/24 11:44 Pulse 79 07/30/24 11:44 Resp 22 H 07/30/24 11:44 BP 130/72 07/30/24 11:44 Pulse Ox 98 07/30/24 11:44 Oxygen Delivery Method Room Air 07/30/24 11:44 Care Plan Goal for BP management: <130/80 at Goal BMI result Body Mass Index 37.6 BMI Assessment/Plan discussion: High BMI High, discussed plan: lifestyle, weight reduction, dietary, physical activity and alcohol moderation Tobacco/Smoking Status: Tobacco use Status Tobacco use date assessed 07/30/24 07/30/24 11:53 Patient Tobacco Use Status Never used Tobacco 07/30/24 11:45 e-Cigarette/Vaping Use Never Used 07/30/24 11:45 PHQ-9: PHQ-9 Score PHQ-9: Total score 0 07/30/24 11:53 Depression Screening Interpretation: Negative Thrive Assessment: Date of Thrive Assessment Date Thrive assessed 07/30/24 07/30/24 11:53 Currently or been in a relationship where the following occur: No concerns reported Coding Level of Care Code Est Pt Level 4 (74759) Complex EM visit Add On G2211 Diagnoses Sinusitis J32.9 Eczema L30.9 Fatigue R53.83 Hair loss L65.9 Additional Codes LINDA-7 Assessment Billing - LINDA-7 Assessment Tool: LINDA-7 Assessment 34662 ([id number]) PHQ-9 - 29193 - PHQ-9 Billing: Yes ([id number]) Assessment & Plan Assessment & Plan (1) Sinusitis: Code(s): J32.9 - Chronic sinusitis, unspecified Category: Medical Plan: Managing the sinusitis involves prescribing Augmentin and Claritin D. Monitoring is suggested for potential side effects, implementing probiotics for gastrointestinal comfort if necessary. (2) Eczema: Code(s): L30.9 - Dermatitis, unspecified Category: Medical Plan: Treatment includes hydrocortisone ointment for eczema management on the patient's right hand, with continual use of moisturizers as needed. (3) Fatigue: Code(s): R53.83 - Other fatigue Category: Medical Plan: Patient reports generalized fatigue and hair loss. Will obtain basic labs to evaluate for possible abnormalities. Condition is chronic and stable continue to monitor. (4) Hair loss: Code(s): L65.9 - Nonscarring hair loss, unspecified Category: Medical Plan: Patient reports generalized fatigue and hair loss. Will obtain basic labs to evaluate for possible abnormalities. Condition is chronic and stable continue to monitor. Plan Plan Patient was informed and verbally consented to the use of an ambient scribe for clinic note documentation during this visit. 1. Cough The cough management correlates with treatment of sinusitis via Augmentin and Claritin D, focusing on reducing symptoms related to cough and congestion. 2. Skin Condition Eczema Treatment includes hydrocortisone ointment for eczema management on the patient's right hand, with continual use of moisturizers as needed. 3. Sinusitis Managing the sinusitis involves prescribing Augmentin and Claritin D. Monitoring is suggested for potential side effects, implementing probiotics for gastrointestinal comfort if necessary. Discussion Notes I discussed with the patient her persistent sinusitis symptoms and the recurrent cough. The likely diagnosis is another sinus infection given the symptom profile. I explained the need for Augmentin therapy, highlighting potential gastrointestinal side effects and the role of Claritin D in sinus drainage. Additionally, eczema management involves topical hydrocortisone. Monitoring for any adverse effects was discussed, confirming the absence of any significant risk in continuing existing medications. Recommendations involved follow-up blood work to identify potential nutritional or metabolic concerns linked to fatigue and hair loss. I advised the patient on probiotic integration for well- being enhancement and regular moisturizing for the skin. Orders: Orders Comprehensive Met. Panel Today Z. - Encounter for general adult medical examination without abnormal findings Erythrocyte Sedimentation Rate Today Z. - Encounter for general adult medical examination without abnormal findings C Reactive Protein Today Z.00 - Encounter for general adult medical examination without abnormal findings Liver Panel Today Z. - Encounter for general adult medical examination without abnormal findings Vitamin B1 Today Z. - Encounter for general adult medical examination without abnormal findings Testosterone, Total Today Z. - Encounter for general adult medical examination without abnormal findings Prolactin Today Z. - Encounter for general adult medical examination without abnormal findings Progesterone Today Z.00 - Encounter for general adult medical examination without abnormal findings Complete Blood Count Auto Diff Today Z00.00 - Encounter for general adult medical examination without abnormal findings Hemoglobin A1c Today Z00.00 - Encounter for general adult medical examination without abnormal findings Magnesium Today Z00.00 - Encounter for general adult medical examination without abnormal findings Vitamin B12 and Folate Today Z00.00 - Encounter for general adult medical examination without abnormal findings Vitamin D 25-OH Total Today Z00.00 - Encounter for general adult medical examination without abnormal findings Zinc Today Z00.00 - Encounter for general adult medical examination without abnormal findings TSH reflex Free T4 Today Z.00 - Encounter for general adult medical examination without abnormal findings Vitamin A Today Z.00 - Encounter for general adult medical examination without abnormal findings Estrogen Today Z.00 - Encounter for general adult medical examination without abnormal findings Medications: New loratadine-pseudoephedrine 5-120 mg ER (Claritin-D 12 Hour) 1 tab PO Q12H 14 tabs 0RF amoxicillin-pot clavulanate 875-125 mg 1 tab PO BID 10 days 20 tabs 0RF hydrocortisone 2.5% 1 appl topical BID-TID PRN 454 grams 1RF itching Patient Instructions: Patient Instructions - Take Augmentin 875 mg twice daily for 10 days. - Use Claritin D as directed, three days on and two days off basis, to manage the sinus congestion. - Apply hydrocortisone ointment as needed for eczema management on the right hand. - Proceed with the recommended blood work to assess potential deficiencies. - Report any bothersome side effects, such as excessive diarrhea or rash, immediately. - Consider using probiotic-rich foods like yogurt to mitigate gastrointestinal side effects. - Maintain a follow-up appointment in six months or sooner if laboratory results show abnormalities. Scribe Plan - Not visible on output: History of Present Illness The patient is a 58-year-old female presenting with unresolved symptoms consistent with sinusitis. She describes experiencing lingering symptoms similar to a flu starting June 27. Last month, she was evaluated at a walk-in clinic and was prescribed a Z-Paul; however, her symptoms initially improved but then returned with a persistent cough appearing approximately two weeks ago. She denies chest pain or respiratory distress, but encounters fatigue and unexplained hair thinning. The patient has a concurrent skin condition, likely eczema, on the right hand, worsening amid her systemic symptoms. Absent generalized fever or exposure- related factors align with her persistent sinus congestion and cough recurrence, indicating progressing sinusitis. Social History - No recent falls or travel reported. - Denies any known exposure to illness. - Expresses concern over recent hair loss. Review of Systems - Constitutional: Reports feeling constantly tired. - Skin: Reports hair loss. - ENT: Reports congestion and cough recurrence. Physical Exam Appearance: Alert. Oriented X3. No acute distress. Head: Normal external exam. Normocephalic. Atraumatic. Eyes: Pupils are equal, round, and reactive to light. Extraocular movements intact. Conjunctiva and sclera normal. Eyelids normal. Ears: External auditory canal normal. Tympanic membranes normal. Some fluid noted in the ears. Throat: Pharynx swollen. Uvula midline. Moist mucous membranes. Neck: Normal inspection. Neck supple. Full range of motion. No adenopathy. Thyroid Normal. No meningeal signs. No neck mass noted. Cardiovascular: Normal heart rate and rhythm. Heart sound normal. No murmurs noted. Pulses normal throughout. Respiratory: No respiratory distress. Painless inspiration. Breath sounds normal. No wheezes/rales/rhonchi noted. Chest nontender. No accessory muscle usage noted or decreased air movement noted. Abdomen: Soft and nontender. Bowel sounds normal in all 4 quadrants. No distention noted. No organomegaly noted. No visible injury noted. Back: No costovertebral angle tenderness. Full range of motion noted. Skin: Skin warm and dry. Normal skin color. Normal skin turgor. No rashes/lesions/lacerations noted. Eczema noted on the right hand. Extremities: No lower extremity edema. Extremities exhibit normal range of motion. Extremities nontender. Neuro: Oriented X 3. No motor deficit. No sensory deficit. Reflexes normal.
--- OUTSIDE RECORDS SUMMARY | 2024-07-30 12:36 | XMS_ITS | Clinical Summary ---
Author Organization [employer] [facility] Address [address] [place] [address] [address]t [place] [address] Care Team Providers Care Death Claim Clerk Name Role Phone Unavailable Primary Care Provider [...] Description 08/06/2024 3:00 PM EDT Office Visit [facility] [address] [place] [address] [phone] Corinne Pratt [address] [place] [phone] Health Maintenance Due Date Last Done Comments [...] ESTABLISHED PATIENT Routine 02/04/2024 3:00 PM EDT INTRAORAL - COMPLETE SERIES OF RADIOGRAPHIC IMAGES Routine 03/13/2018 12:00 AM EST from Last 3 Months or Most Recently Relevant to Health Maintenance Insurance DENTAL - HSN PARTIAL (MEDICAID)
--- OUTSIDE RECORDS SUMMARY | 2024-07-30 12:36 | XMS_ITS | Encounter Summary ---
Author Organization [employer] [facility] Address [address] [place] [address] [address]t [place] [address] Care Team Providers Care Loan Operations Specialist Name Role Phone Unavailable Primary Care Provider Unavailabl e Encounter Details Date Type Department Care Team (Latest Contact Info) Description 01/30/2022 Abstract [facility] CONVERSIONS Dental, Provider, DDS Social History Tobacco [...] Description 08/06/2024 3:00 PM EDT Office Visit [facility] [address] [place], [place] [phone] Corinne Pratt [address] [place], [place] [phone] documented as of this encounter Visit Diagnoses Not on filedocumented in this encounter
--- OUTSIDE RECORDS SUMMARY | 2024-07-30 12:36 | XMS_ITS | Encounter Summary ---
Author Organization [employer] [facility] Address [address] [place] [address] 7t [place] [address] Care Team Providers Care Sand Tester Name Role Phone Unavailable Primary Care Provider Unavailabl e Encounter Details Date Type Department Care Team (Latest Contact Info) Description 03/31/2020 Abstract [facility] CONVERSIONS Dental, Provider, DDS Social History Tobacco [...] Description 08/06/2024 3:00 PM EDT Office Visit [facility] [address] [place], [place] [phone] Corinne Pratt [address] [place], [place] [phone] documented as of this encounter Visit Diagnoses Not on filedocumented in this encounter
--- OUTSIDE RECORDS SUMMARY | 2024-07-30 12:36 | XMS_ITS | Encounter Summary ---
Author Organization [employer] [facility] Address [address] [place] [address] 7t [place] [address] Care Team Providers Care Back Maker Name Role Phone Unavailable Primary Care Provider Unavailabl e Encounter Details Date Type Department Care Team (Latest Contact Info) Description 08/29/2018 Abstract [facility] CONVERSIONS Dental, Provider, DDS Social History Tobacco [...] Description 08/06/2024 3:00 PM EDT Office Visit [facility] [address] [place], [place] [phone] Corinne Pratt [address] [place], [place] [phone] documented as of this encounter Visit Diagnoses Not on filedocumented in this encounter
== END 2024-07-30 12:39 | disposition home or self-care (01) ==
LOC: HO.HMCH 11:20
PROVIDERS: PCP Internal Medicine; Visit Provider Physician Assistant Medical
DX: J32.9 Chronic sinusitis, unspecified (principal); L30.9 Dermatitis, unspecified; R53.83 Other fatigue; L65.9 Nonscarring hair loss, unspecified

== ENCOUNTER 2024-08-26 14:39 | Outpatient (REF) | payer OTHER, SELFPAY ==
--- OUTSIDE RECORDS SUMMARY | 2024-08-26 15:52 | XMS_ITS | Clinical Summary ---
Author Organization [employer] [facility] Address [address] [place] [address] 7t [place] [address] Care Team Providers Care Accounts Collector Name Role Phone Unavailable Primary Care Provider [...] Care Team (Late st Contact Info) Description 08/31/2024 4:00 PM EDT Office Visit [facility] [address] [place] [address] [phone] Corinne Pratt [address] [place] [phone] Health Maintenance Due Date Last Done Comments [...] COVID-19 Vaccine ( season) 2023 12/01/2020, 11/10/2020 Dental Oral Exam 08/05/2024 02/04/2024, , 01/30/2022, Additional history exists Dental Prophylaxis 08/05/2024 02/04/2024, 0 12/17/2022, 01/30/2022, Additional history exists Tobacco Screening 02/03/2025 02/04/2024 Dental X-Ray: Bitewings 02/04/2025 02/04/20 24, 01/28/2023, 01/30/2022, Additional history exists RSV Patients and Patients Aged 60 years or older (1 - 1-dose 75+ series) 2041 Influenza Vaccine Completed 05/07/2024, , 02/24/2021, Additional history exists HIB Vaccines Aged Out No longer eligi [...]
--- OUTSIDE RECORDS SUMMARY | 2024-08-26 15:52 | XMS_ITS | Encounter Summary ---
Author Organization [employer] [facility] Address [address] [place] [address] [address]t [place] [address] Care Team Providers Care Accounts Clerk Name Role Phone Unavailable Primary Care Provider Unavailabl e Encounter Details Date Type Department Care Team (Latest Contact Info) Description 03/31/2020 Abstract [facility] CONVERSIONS Dental, Provider, DDS Social History Tobacco [...] Description 08/31/2024 4:00 PM EDT Office Visit [facility] [address] [place], [place] [phone] Corinne Pratt [address] [place], [place] [phone] documented as of this encounter Visit Diagnoses Not on filedocumented in this encounter
--- OUTSIDE RECORDS SUMMARY | 2024-08-26 15:52 | XMS_ITS | Encounter Summary ---
Author Organization [employer] [facility] Address [address] [place] [address] 7[address] [place] [address] Care Team Providers Care Curtain Roller Assembler Name Role Phone Unavailable Primary Care Provider Unavailabl e Encounter Details Date Type Department Care Team (Latest Contact Info) Description 01/30/2022 Abstract [facility] CONVERSIONS Dental, Provider, DDS Social History [...] Description 08/31/2024 4:00 PM EDT Office Visit [facility] [address] [place], [place] [phone] Corinne Pratt [address] [place], [place] [phone] documented as of this encounter Visit Diagnoses Not on filedocumented in this encounter
--- OUTSIDE RECORDS SUMMARY | 2024-08-26 15:52 | XMS_ITS | Encounter Summary ---
Author Organization [employer] [facility] Address [address] [place] [address] [address]t [place] [address] Care Team Providers Care It Technical Architect Name Role Phone Unavailable Primary Care Provider Unavailabl e Encounter Details Date Type Department Care Team (Latest Contact Info) Description 08/29/2018 Abstract [facility] CONVERSIONS Dental, Provider, DDS Social History [...] Description 08/31/2024 4:00 PM EDT Office Visit [facility] [address] [place], [place] [phone] Corinne Pratt [address] [place], [place] [phone] documented as of this encounter Visit Diagnoses Not on filedocumented in this encounter
== END 2024-08-26 14:40 | disposition home or self-care (01) ==
LOC: HO.MAMMO 14:39
PROVIDERS: PCP Internal Medicine; Visit Provider Internal Medicine
DX: Z12.31 Encounter for screening mammogram for malignant neoplasm of breast (principal)
CPT/HCPCS: 77063; 77067

== ENCOUNTER → 2024-08-26 15:00 | Outpatient (BNV) | payer OTHER, SELFPAY | PROVIDERS: PCP Internal Medicine; Visit Provider Internal Medicine | DX: Z12.31 Encounter for screening mammogram for malignant neoplasm of breast (principal) | CPT/HCPCS: 77063; 77067 ==

== ENCOUNTER 2024-10-21 13:28 | Outpatient (REF) | payer OTHER, SELFPAY ==
--- NOTE | ~2024-10-21 | MM_ITS ---
EXAMINATION: MM DIAGNOSTIC DIGITAL BREAST TOMOSYNTHESIS, RIGHT Right limited ultrasound. CLINICAL INFORMATION: Call back from screening for developing focal asymmetry in the lower inner breast with associated architectural distortion. COMPARISON: Mammography: [facility] on PACS. TECHNIQUE: Digital breast tomosynthesis is performed in both the craniocaudal and mediolateral oblique views along with computer-aided detection (CAD). Synthesized 2D images are generated from the tomosynthesis. FINDINGS: There are scattered areas of fibroglandular density (ACR BI-RADS breast composition Category b). Focal asymmetry in the lower inner breast anterior to middle depth with associated distortion persist on additional imaging projections. No suspicious calcifications or other abnormal findings. Targeted color Doppler ultrasound demonstrates normal fibronodular breast tissue scanning in the lower inner breast from 2-6 o'clock. There is no sonographic abnormal finding. MM/MM tomosynthesis added views R IMPRESSION: Developing focal asymmetry with associated distortion best seen on CC view in the lower inner breast. Recommend stereotactic core needle biopsy at this time for confirmation. The findings and recommendations were discussed with the patient the procedure will be scheduled. ASSESSMENT: BI-RADS BI-RADS 4 - Suspicious finding RECOMMENDATION: Biopsy recommended Results were discussed with the patient at time of visit. Electronically signed by: Sobia Peng DO 10/21/2024 02:31 PM EDT
--- OUTSIDE RECORDS SUMMARY | 2024-10-21 15:52 | XMS_ITS | Encounter Summary ---
Author Organization [employer] Address [address] [place] [address] [address]t [place] [address] Care Team Providers Care Lawyer Probate Name Role Phone Unavailable Primary Care Provider Unavailabl e Encounter Details Date Type Department Care Team (Latest Contact Info) Description 08/29/2018 Abstract [facility] CONVERSIONS Dental, Provider, DDS Social History Tobacco [...] Care Team (Late st Contact Info) Description 03/09/2025 4:00 PM EST Office Visit [facility] [address] [place], [place] [phone] Corinne Pratt [address] [place], [place] [phone] documented as of this encounter Visit Diagnoses Not on filedocumented in this encounter
== END 2024-10-21 13:29 | disposition home or self-care (01) ==
LOC: HO.MAMMO 13:28
PROVIDERS: PCP Internal Medicine; Visit Provider Internal Medicine
DX: N64.89 Other specified disorders of breast (principal)
CPT/HCPCS: 76642; 77061; 77065

== ENCOUNTER → 2024-10-21 13:30 | Outpatient (BNV) | payer OTHER, SELFPAY | PROVIDERS: PCP Internal Medicine; Visit Provider Internal Medicine | DX: R92.8 Other abnormal and inconclusive findings on diagnostic imaging of breast (principal); R92.321 Mammographic fibroglandular density, right breast | CPT/HCPCS: 76642; 77061; 77065 ==

== ENCOUNTER 2024-11-18 08:27 | Outpatient (AMB) | payer OTHER, SELFPAY ==
--- NOTE | 2024-11-18 08:31 | MHC.OFFVIS ---
Vital Signs 11/18/24 08:38 Height 4 ft 11 in Weight 180 lb BMI 36.4 BP 137/71 Blood Pressure Location Rt brachial Position Sitting Pulse 85 Intake Visit Reasons: (R) breast stereo bx for (L) inner asymmetry Intake Note: Patient is seen in office for stereo bx CONSULT lower inner right breast 2-6 o'clock, asymmetry. Patient c/o: does not feel lump, denies redness, tenderness, nipple discharge. Bx scheduled: 11-18-24 @ 9:30am. In Class Special Education Teacher Required: No Accompanied by: Luis Felipe Allergies No Known Drug Allergies Allergy (Unknown, Verified 11/18/24 08:36) Unknown HPI HPI (R) breast stereo bx for (L) inner asymmetry: Details: [age] year female referred for an abnormal mammogram. She had a screening mammogram in July 2024 he will she was brought in for diagnostic mammogram last month which showed focal asymmetry in the lower inner breast anterior to depth with associated distortion on the right breast. These findings are seen as well on ultrasound. A biopsy was therefore recommended by the radiologist because of this developing focal asymmetry. She denies any palpable breast mass. She denies a family history of breast cancer. She says her menarche was at the age of 13. Her 1st was at age of 7. She had 5 pregnancies, but 3 were not completed to return and she had 2 live births. [facility] Medical History Abnormal mammogram of right breast Hair loss Eczema Sinusitis Class 2 severe obesity with body mass index (BMI) of 35 to 39.9 with serious comorbidity Sinus pain Acute right ankle pain Encounter to establish care Umbilical hernia Cluster headache Migraine Post covid-19 condition, unspecified Cough Surgical History Hx of colonoscopy H/O hernia repair Social History Household Members: Spouse and Children Housing: House Alcohol intake: never Patient Tobacco Use Status: Never used Tobacco e-Cigarette/Vaping Use: Never Used Second Hand Smoke Exposure: No service: No Current occupational status: unemployed Sexual orientation: Straight/Heterosexual Gender identity: Female Cognitive needs: No Hearing needs: Yes (?hearing loss) Vision needs: Yes (Pt wears glasses) Female Reproductive History Menstrual Age of Menarche: 15 Review of Systems Const Denies chills and Denies fever(s) Card Denies chest pain, Denies dyspnea and Denies dyspnea on exertion Resp Denies cough, Denies dyspnea and Denies dyspnea on exertion GI Denies hematochezia and Denies change in bowel habits Denies hematuria Musc Denies back pain and Denies limited range of motion Neuro Denies focal weakness and Denies convulsions Psych Denies depression and Denies mood swings Physical Exam Vital Signs: Last Vital Signs Pulse 85 11/18/24 08:38 BP 137/71 11/18/24 08:38 BMI result Body Mass Index 36.4 Const Other: Morbidly obese General: comfortable and no acute distress Orientation/consciousness: patient oriented x3 Neck Neck: Yes no lymphadenopathy Chest Other: Has very large, pendulous breasts, no palpable breast masses, no axillary lymphadenopathy, nipple or skin changes Resp Auscultation: clear to auscultation bilaterally Cardio Rhythm: regular rhythm GI Palpation (GI): Soft to palpation, nontender and no guarding Neuro General: patient oriented x3 Assessment & Plan Assessment & Plan (1) Abnormal mammogram of right breast: Code(s): R92.8 - Other abnormal and inconclusive findings on diagnostic imaging of breast Category: Medical Plan: She has developed cream focal asymmetry on the right breast as described above. A stereotactic biopsy was therefore recommended by the radiologist I explained to her the technique of this procedure. I will see her in the office again to review the path report. She understands the plan well and is comfortable with this. Her was with her during the visit. Orders: Orders MM stereotactic biopsy RT 11/17/24 R92.8 - Other abnormal and inconclusive findings on diagnostic imaging of breast Coding Level of Care Code New Pt Level 3 (78337) Diagnoses Abnormal mammogram of right breast R92.8
[2024-11-18 08:38] VITALS: BP 137/71; PULSE 85; BMI 36.4
--- OUTSIDE RECORDS SUMMARY | 2024-11-18 08:41 | XMS_ITS ---
Author Name [facility] Organization Unknown Care Team Organization Name Specialty Phone Email Start Date End Da te [facility] Ross Smith Primary Care 09/03/2022 12/16/19 [facility] Termed, PROVIDER Primary Care 03/06/202211/27
--- OUTSIDE RECORDS SUMMARY | 2024-11-18 08:41 | XMS_ITS | Encounter Summary ---
Author Organization [employer] Address [address] [place] [address] [address] [place] [address] Care Team Providers Care Environmental Health Manager Name Role Phone Unavailable Primary Care Provider Unavailabl e Encounter Details Date Type Department Care Team (Latest Contact Info) Description 08/29/2018 Abstract [facility] CONVERSIONS Dental, Provider, DDS Social History [...] Description 03/09/2025 4:00 PM EST Office Visit [facility] [address] [place], [place] [id number] Corinne Pratt [address] [place], [place] [phone] documented as of this encounter Visit Diagnoses Not on filedocumented in this encounter
== END 2024-11-18 08:55 | disposition home or self-care (01) ==
LOC: HO.HGS 08:27
PROVIDERS: PCP Internal Medicine; Visit Provider Surgery
DX: R92.8 Other abnormal and inconclusive findings on diagnostic imaging of breast (principal)
CPT/HCPCS: 99203

== ENCOUNTER 2024-11-18 08:56 | Outpatient (REF) | payer OTHER, SELFPAY ==
--- NOTE | ~2024-11-18 | MM_ITS ---
EXAMINATION: STEREOTACTICALLY-GUIDED RIGHT BREAST BIOPSY CLINICAL INFORMATION: Focal asymmetry in the lower inner right breast with associated distortion without sonographic correlate recommended for stereotactic core needle biopsy. COMPARISON: [facility] on PACS. INFORMED CONSENT: After the details of the procedure, as well as the risks (including, but not limited to, bleeding, hematoma formation, and infection), benefits and alternatives (including doing nothing, short-interval follow up, and surgery) to the procedure were explained to the patient in detail and all of her questions were answered, informed written consent was obtained. TECHNIQUE/FINDINGS: A timeout was performed. The lesion intended for biopsy was not definitively identified on today's imaging and therefore biopsy was canceled. Recommend breast MRI with contrast for further evaluation at this time. Recommend six-month follow-up right breast mammogram for further evaluation. The findings and recommendations were discussed with the patient who agreed. MM/MM stereotactic biopsy RT IMPRESSION: 1. Canceled stereotactically-guided core biopsy of the right breast. 2. Recommend breast MRI at this time for further evaluation lower inner quadrant lower central breast. 3. Recommend six-month follow-up mammography for further evaluation. Electronically signed by: Sobia Peng DO 11/19/2024 08:47 AM EDT
--- OUTSIDE RECORDS SUMMARY | 2024-11-18 09:21 | XMS_ITS | Encounter Summary ---
Author Organization [facility] Address [address] [place] [address] Care Team Providers Care Armored Car Guard Name Role Phone Amelia Ca MD Primary Care Provider Ailin Brown MD Primary Care Provider [phone] Encounter Details Date Type Department Care Team Description 04/10/2018 Refill Medicine/Pediatrics - [address] [phone] Kassidy Ryan PA-C Social History Tobacco Use Types Packs/Day Years Used Date Smoking Tobacco: Never Smokeless Tobacco: Never Alcohol Use Standard Drinks/Week Comments No 0 (1 standard drink = 0.6 oz pur e alcohol) Sex Assigned at Date Recorded Not on file Job Start Date Occupation Industry Not on file Not on file Not on file documented as of this encounter Miscellaneous Notes * Telephone Encounter - Carito Carlisle LSiriP.NSiri - 04/11/2018 10:55 AM EST Seen 01/30/2018 UTD please review and sign BP Readings from Last 5 Encounters: 02/10/18 120/80 01/30/18 116/82 10/03/17 120/70 10/01/17 122/80 08/23/17 126/86 * Telephone Encounter - Carito EcholsP.NSiri - 04/11/2018 10:55 AM ESTFrom: Dian Gallegos To: Kassidy Ryan PA-C Sent: 04/10/2018 5:53 PM EST Subject: Medication Renewal Request Original authorizing provider: Kassidy Ryan PA-C Dian Gallegos would like a refill of the following medications: escitalopram (LEXAPRO) 10 MG tablet [Kassidy Ryan PA-C] Preferred pharmacy: [id number] - [place], [place] - [address] [place] [address] AT [facility] Comment: documented in this encounter Plan of Treatment Not on file documented as of this encounter Visit Diagnoses Not on filedocumented in this encounter Care Teams Armored Car Guard Relationship Specialty Start Date End Date Amelia Ca MD PCP - General Internal Medicine 03/04/12 04/06/21 Ailin Stevens MD [address] [place] [id number] PCP - General Internal Medicine 04/07/21 documented as of this encounter
== END 2024-11-18 08:57 | disposition home or self-care (01) ==
LOC: HO.MAMMO 08:56
PROVIDERS: PCP Internal Medicine; Visit Provider Surgery
DX: R92.8 Other abnormal and inconclusive findings on diagnostic imaging of breast (principal)
CPT/HCPCS: 19081

== ENCOUNTER → 2024-11-18 09:30 | Outpatient (BNV) | payer OTHER, SELFPAY | PROVIDERS: PCP Internal Medicine; Visit Provider Internal Medicine | DX: R92.8 Other abnormal and inconclusive findings on diagnostic imaging of breast (principal) | CPT/HCPCS: 19081 ==

== ENCOUNTER 2025-03-18 14:43 | Outpatient (AMB) | payer OTHER, SELFPAY ==
--- NOTE | 2025-03-18 14:50 | MHC.OFFVIS ---
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 Chief Investment Officer concerns: none. Currently sexually active. Denies any vaginal dryness or irritation. STI testing offered; she declined. Attempting to eat a healthy diet with calcium and vitamin D and stays active with exercise-cycles daily. Admits struggling to lose weight despite efforts, has spoken to her PCP about her concerns. Last pap smear; 2023, negative. Last mammogram; 2024. Colonoscopy is UTD. [facility] Medical History (Updated 03/18/25 @ 15:18 by Tressa Jackson CNM) Abnormal mammogram of right breast Hair loss Eczema Sinusitis Class 2 severe obesity with body mass index (BMI) of 35 to 39.9 with serious comorbidity Sinus pain Acute right ankle pain Umbilical hernia Cluster headache Migraine Post covid-19 condition, unspecified Cough Surgical History Hx of colonoscopy H/O hernia repair Social History Household Members: Spouse and Children Housing: House Alcohol intake: never Patient Tobacco Use Status: Never used Tobacco e-Cigarette/Vaping Use: Never Used Second Hand Smoke Exposure: No service: No Current occupational status: unemployed Sexual orientation: Straight/Heterosexual Gender identity: Female Cognitive needs: No Hearing needs: Yes (?hearing loss) Vision needs: Yes (Pt wears glasses) Female Reproductive History Menstrual Age of Menarche: 15 Total pregnancies: 5 Full term: 2 Number of Living Children: 2 Date of last pap smear: 03/12/24 (neg pap and hpv) Date of Mammogram: 08/26/24 (Birad 0) History of abnormal mammogram: Yes (10/21/2024 Birad 4) Review of Systems Const All systems reviewed & are unremarkable except as noted in HPI and below Reports as per HPI Eyes Reports no additional complaints ENT Reports no additional complaints Card Reports no additional complaints Resp Reports no additional complaints GI Reports as per HPI and Reports no additional complaints Reports as per HPI Musc Reports no additional complaints Skin/Breast Reports as per HPI Neuro Reports no additional complaints Psych Reports no additional complaints Endo Reports no additional complaints [place]/Lymph Reports no additional complaints Aller/Immun Reports no additional complaints Physical Exam Vital Signs: Last Vital Signs BP 114/78 03/18/25 14:55 BMI result Body Mass Index 36.4 Const General: cooperative, healthy appearing, no acute distress, well developed and alert Orientation/consciousness: patient oriented x3 HEENT Head: Yes normal to inspection Eyes General: appearance normal, both eyes and all related structures Neck Neck: Yes normal visual inspection Thyroid: Thyroid normal Chest Chest palpation & inspection: normal inspection of the chest and other (no puckering, dimpling, peau de orange, retraction, discharge, masses) Breast/axilla inspection: normal inspection of the breasts Breast/axilla palpation: normal palpation of the breasts Resp Effort & Inspection: normal respiratory effort GI Inspection: Yes normal to inspection Palpation (GI): Soft to palpation Rectal Exam - Female: deferred General: Yes bladder normal to palpation External Female Exam: normal external appearance and normal appearance of the urethra Speculum Exam - Vagina: normal appearance of the vagina, normal palpation, normal vaginal discharge and vagina atrophic Speculum Exam - Cervix: normal appearance of the cervix and normal palpation Bimanual exam- vagina & uterus: normal bimanual exam, normal palpation, uterine size normal, bladder normal to palpation, normal palpation and non-tender Bimanual Exam- Adnexa, other: no masses Skin General skin exam: no rashes or lesions noted Rashes: no rashes Neuro General: patient oriented x3 Cognition (Neuro): normal cognition Extrem General: Yes normal to inspection Psych Attitude: cooperative Thought process: Normal thought process present Assessment & Plan Assessment & Plan (1) Encounter for gynecological examination: Code(s): Z01.419 - Encounter for gynecological examination (general) (routine) without abnormal findings Category: Medical Plan Discussed: Current recommendations for pap smears per ASCCP guidelines. Breast awareness, periodic self breast exams and yearly mammogram. Maintain a healthy lifestyle, well balanced diet including Calcium 1,200 mg and Vitamin D 600 IU daily, and routine exercise. Replens moisturizer and vaginal lubricant use. Contact the office with any postmenopausal bleeding. Patient verbalizes understanding and agrees to the plan of care. She was given opportunity to ask questions and all questions were answered to the best of my ability. RTO in 1 year for annual adjunct faculty exam. This note is constructed using voice recognition software. While every effort has been made to ensure accuracy, career services director errors may have been included. Coding Level of Care Code Est Pt Prev Care 40-64y(47131) Diagnoses Encounter for gynecological examination Z01.419
[2025-03-18 14:55] VITALS: BP 114/78; BMI 36.4
--- OUTSIDE RECORDS SUMMARY | 2025-03-18 20:06 | XMS_ITS | Encounter Summary ---
Author Organization [employer] Address [address] [place] [address] Care Team Providers Care Optical Glass Silverer Name Role Phone Unavailable Primary Care Provider Unavailabl e Encounter Details Date Type Department Care Team (Latest Contact Info) Description 01/30/2022 Abstract [facility] CONVERSIONS Dental, Provider, DDS Social [...] as of this encounter Plan of Treatment Not on file documented as of this encounter Visit Diagnoses Not on filedocumented in this encounter
--- OUTSIDE RECORDS SUMMARY | 2025-03-18 20:06 | XMS_ITS | Encounter Summary ---
Author Organization [employer] Address [address] [place] [address] Care Team Providers Care Electromedical Service Engineer Name Role Phone Unavailable Primary Care Provider Unavailabl e Encounter Details Date Type Department Care Team (Latest Contact Info) Description 03/31/2020 Abstract [facility] CONVERSIONS Dental, Provider, DDS Social [...]
--- OUTSIDE RECORDS SUMMARY | 2025-03-18 20:06 | XMS_ITS | Clinical Summary ---
Author Organization [employer] Address [address] [facility] [address] [place] [address] Care Team Providers Care Manager Research And Development Name Role Phone Unavailable Primary Care Provider [...] by mouth in the morning. 06/22/2021 Active Active Problems Problem Noted Date Diagnosed Date Sensorineural hearing loss (SNHL) of both ears 0 01/09/2019 Snoring 08/31/2018 Overview (09/29/2024): 08/28/2018 Home Sleep Study did not reveal sleep apnea. Severe obesity (BMI 35.0-39.9) with comorbidity (CMS/HCC) 12/23/2014 Esophageal reflux 10/14/2014 Incisional hernia 12/31/2013 Spinal cord and nerve root disorder 12/23/2013 Major depression 11/19/2012 TMJ arthralgia 09/09/2012 Umbilical hernia 09/08/2012 Eczema 08/04/2012 Social History Tobacco Use Types Packs/Day Years [...] Sign Reading Time Taken Comments Blood Pressure 112/60 09/29/2024 3:22 PM EDT Pulse 79 08/31/2024 3:57 PM EDT Temperature - - Respiratory Rate - - Oxygen Saturation - - Inhaled Oxygen Concentration - - Weight - - Height - - Body Mass Index - - Plan of Treatment Health Maintenance Due Date Last Done Comments CT Colonography 1966 Colonoscopy 1966 Colorectal Cancer Screening 1966 Depression Screening 1966 FIT DNA/Cologuard 1966 FIT 1966 FOBT 1966 HIV Screening 1966 Lipid Panel 1966 SDOH Screening 1966 Sigmoidoscopy 1966 Disability Screening 1966 Alcohol/Substance Use Screening 1978 Hepatitis C [...] or Tdap) 02/18/2023 02/18/2013, 07/07/2004 COVID-19 Vaccine (3 - season) 2024 12/01/2020, 11/10/2020 Influenza Vaccine (#1) 2024 5, 01/30/2023, 02/24/2021, Additional history exists Dental X-Ray: Bitewings 02/04/2025 02/04/20 24, 01/28/2023, 01/30/2022, Additional history exists Dental Oral Exam 03/04/2025 08/31/2024, 11/2023, 12/17/2022, Additional history exists Dental Prophylaxis 03/04/2025 08/31/2024, 1 , 12/17/2022, Additional history exists Tobacco Screening 09/29/2025 09/29/2024 RSV Patients and Patients Aged 60 years [...] patient's age to complete this topic Meningococcal B Vaccine Aged Out No l onger eligible based on patient's age to complete [...] Associated Diagnosis Comments PROPHYLAXIS - ADULT Routine 08/31/2024 4 :00 PM EDT PERIODIC ORAL EVALUATION - ESTABLISHED PATIENT Routine 08/31/2024 4:00 PM EDT BITEWINGS - 4 RADIOGRAPHIC IMAGES Routine 02/04/2024 3:00 PM EDT INTRAORAL - COMPLETE SERIES OF RADIOGRAPHIC IMAGES Routine 03/13/2018 12:00 AM EST from Last 3 Months or Most Recently Relevant to Health Maintenance Insurance DENTAL - [place] PARTIAL (MEDICAID)
--- OUTSIDE RECORDS SUMMARY | 2025-03-18 20:06 | XMS_ITS | Encounter Summary ---
Author Organization [employer] Address [address] [facility] [address] [place] [address] Care Team Providers Care Manager Rehab Name Role Phone Unavailable Primary Care Provider Unavailabl e Encounter Details Date Type Department Care Team (Latest Contact Info) Description 08/29/2018 Abstract [facility] CONVERSIONS Dental, Provider, DDS Social [...]
== END 2025-03-18 16:02 | disposition home or self-care (01) ==
PROVIDERS: Visit Provider Advanced Practice Midwife
DX: Z01.419 Encounter for gynecological examination (general) (routine) without abnormal findings (principal)
CPT/HCPCS: 99396; 99459